=== PATIENT | female | born 1970 | race Caucasian/White ===

== ENCOUNTER 2017-07-02 07:20 | Emergency (ER) | payer MEDICAID, OTHER ==
[2017-07-02 07:48] VITALS: BP 128/71
--- NOTE | 2017-07-02 08:00 | UC ---
Respiratory Complaint HPI - HPI Summary HPI Summary: 1 WEEK OF COUGH, CONGESTION AND SINUS PRESSURE. CHEST FEELS TIGHT. SMOKER. MILD ST AND EAR PAIN. NO N/V/D. - History of Current Complaint Chief Complaint: UCRespiratory Stated Complaint: RESP ISSUE Time Seen by Provider: 07/02/17 07:49 Hx Obtained From: Patient Hx Last Menstrual Period: 06/08/17 Onset/Duration: Gradual Onset, Lasting Days, Still Present Timing: Constant Severity Initially: Moderate Severity Currently: Moderate Pain Intensity: 6 Pain Scale Used: 0-10 Numeric Character: Cough: Nonproductive Aggravating Factors: Nothing Alleviating Factors: Nothing Associated Signs And Symptoms: Positive: URI, Nasal Congestion, Sinus Discomfort. Negative: Dyspnea, Fever, Chills, Pleuritic Chest Pain, Wheezing, Hemoptysis, Dizziness, Calf Pain, Calf Swelling, Hoarseness - Allergies/Home Medications Allergies/Adverse Reactions: Allergies Allergy/AdvReac Type Severity Reaction Status Date / Time Codeine Allergy Nausea Verified 07/02/17 07:48 Morphine Allergy skin peels Verified 07/02/17 07:48 Penicillins Allergy Swelling Verified 07/02/17 07:48 Home Medications: Home Medications Magnesium 07/02/17 [History] Mometasone/Formoter 100/5 MDI* [Dulera 100/5 MDI*] 2 puff INH BID 07/02/17 [ History Confirmed 07/02/17] Norethindrone (Contraceptive) [Deblitane] 1 tab PO DAILY 07/02/17 [History Confirmed 07/02/17] Total B With Vitamin C 07/02/17 [History] Vitamin D 3 07/02/17 [History] PMH/Surg Hx/FS Hx/Imm Hx Respiratory History: COPD, Asthma GI/ History: Gastroesophageal Reflux Psychological History: Anxiety, Depression Other History Of: Negative For: HIV, Hepatitis B, Hepatitis C, Anticoagulant Therapy - Surgical History Surgical History: Yes Surgery Procedure, Year, and Place: x 2. biopsy x 3: left breast, left shoulder, throat - Family History Known Family History: Positive: Diabetes - Social History Alcohol Use: Occasionally Substance Use Type: None Smoking Status (MU): Heavy Every Day Tobacco Smoker Type: Cigarettes Amount Used/How Often: 1/2 PPD Length of Time of Smoking/Using Tobacco: 30+ YEARS Have You Smoked in the Last Year: Yes Household Exposure Type: Cigarettes - Immunization History Most Recent Influenza Vaccination: season Review of Systems Constitutional: Negative ENT: Sore Throat, Ear Ache, Nasal Discharge Respiratory: Cough Cardiovascular: Negative Gastrointestinal: Negative All Other Systems Reviewed And Are Negative: Yes Physical Exam Triage Information Reviewed: Yes Appearance: Well-Appearing, No Pain Distress, Well-Nourished Vital Signs: Initial Vital Signs Temp 99 F 07/02/17 07:44 Pulse 67 07/02/17 07:44 Resp 18 07/02/17 07:44 BP 128/71 07/02/17 07:44 Pulse Ox 97 07/02/17 07:44 Vital Signs Reviewed: Yes Eyes: Positive: Conjunctiva Clear ENT: Positive: Hearing grossly normal, Pharynx normal, TMs normal Neck: Positive: Supple, Nontender, Enlarged Nodes @ - MILD SPFL CERVICAL NONTENDER LAD Respiratory Exam: Normal Cardiovascular Exam: Normal Abdomen Description: Positive: Soft Musculoskeletal: Positive: No Edema Neurological: Positive: Alert Psychological: Positive: Age Appropriate Behavior Skin: Negative: rashes UC Diagnostic Evaluation - Laboratory O2 Sat by Pulse Oximetry: 97 Respiratory Course/Dx - Differential Dx/Diagnosis Provider Diagnoses: ACUTE URI Discharge - Discharge Plan Condition: Stable Disposition: HOME Prescriptions: predniSONE TAB* [Deltasone TAB*] 50 mg PO DAILY #5 tab Patient Education Materials: Upper Respiratory Infection (ED) Additional Instructions: NORMAL EXAM TODAY. USE YOUR INHALERS NEEDED. PREDNISONE TO HELP WITH AIRWAY INFLAMMATION. FOLLOW-UP IF YOU ARE NOT IMPROVING OVER THE NEXT 1-2 WEEKS. ACUTE UPPER RESPIRATORY INFECTION The common cold is a benign self-limited syndrome representing a group of diseases caused by members of several families of viruses. It is the most frequent acute illness in the [place] and throughout the industrialized world. The term "common cold" refers to a mild upper respiratory viral infection involving, to variable degrees, nasal congestion and discharge ( rhinorrhea), sneezing, sore throat, cough, low-grade fever, headache, and malaise. Symptomatic therapy remains the mainstay of common cold treatment. In the absence of convincing evidence of a secondary bacterial infection, antibiotics are not effective in the treatment of the common cold and should not be prescribed. Be advised that the usual course and duration of illness is up to one and a half weeks for patients with a cold, but can last slightly longer; symptoms usually persist longer in smokers. CALL THE NUMBER BELOW FOR ASSISTANCE IN ESTABLISHING WITH A PCP An additional resource available to assist in finding the appropriate physician for your health care needs is the [facility] ([facility]). You may contact them by calling [phone].
== END 2017-07-02 08:33 | disposition home or self-care (01) ==
LOC: UCEAST 07:20
DX: J06.9 Acute upper respiratory infection, unspecified (principal); J44.9 Chronic obstructive pulmonary disease, unspecified; K21.9 Gastro-esophageal reflux disease without esophagitis; F41.9 Anxiety disorder, unspecified; F32.9 Major depressive disorder, single episode, unspecified; Z88.5 Allergy status to narcotic agent; Z88.0 Allergy status to penicillin; F17.210 Nicotine dependence, cigarettes, uncomplicated
CPT/HCPCS: 99211; G0463

== ENCOUNTER 2018-05-11 09:57 | Day surgery (SDC) | payer OTHER ==
[~2018-05-11 09:57] MED LIST: Acetaminophen TAB* 325 MG PO PRN; Buffered Lidocaine 0.9% SYRIN* 5 ML/SYR SYRINGE INTRADERM ONE
[2018-05-11] MEDS ORDERED: Midazolam* 1 MG/ML 5 ML VIAL (5 MG) ONE (11:39)
[2018-05-11] MEDS ORDERED: fentaNYL* 50 MCG/ML 2 ML VIAL (100 MCG VIAL) ONE (12:34)
[2018-05-11] MEDS ORDERED: Lidocaine 1%* 5 ML VIAL ONE (12:48)
[2018-05-11] MEDS ORDERED: Povidone Iodine 5% OPTH* 30 ML BTL ONE (12:48)
[2018-05-11] MEDS ORDERED: Ketorolac 0.5% OPHTH (NF) 0.5 % 5 ML BTL ONE (12:48)
[2018-05-11] MEDS ORDERED: Tetracaine 0.5% OPTH.SOL 4 ML* 1 DROP BTL ONE (12:48)
[2018-05-11] MEDS ORDERED: acetaZOLAMIDE TAB* 250 MG ONE (12:48)
[2018-05-11] MEDS ORDERED: Phenylephrine 2.5% OPTH.SOL* 2 ML BTL ONE (12:48)
[2018-05-11] MEDS ORDERED: Neomycin/Polymy/Dex OPHTH.OIN* 3.5 GM ONE (12:48)
[2018-05-11] MEDS ORDERED: Tropicamide 1% OPTH.SOL* BTL ONE (12:48)
[2018-05-11] MEDS ORDERED: Cyclopentolate 1% OPTH.SOL* 2 ML BTL ONE (12:48)
[2018-05-11 13:47] VITALS: BP 117/61
--- NOTE | 2018-05-12 00:41 | OP ---
DATE OF OPERATION: 05/11/18 - [facility] DATE OF : 66 SURGEON: Jose D Corcoran MD. ANESTHESIA: Monitored anesthesia care. PRE-OP DIAGNOSIS: Cataract, left eye. POST-OP DIAGNOSIS: Cataract, left eye. OPERATIVE PROCEDURE: Extracapsular cataract extraction of the left eye with intraocular lens implant. IMPLANTS: SN60WF 22.5 diopter lens to the left eye. COMPLICATIONS: None. DESCRIPTION OF PROCEDURE: The patient was given phenylephrine 2.5% and cyclopentolate 1% eye drops to the operative eye in the preoperative area. The patient was taken to the operating room where a time-out was taken to identify the correct patient, side, and site of surgery. The patient's left eye was prepped and draped in the usual sterile fashion with 5% Betadine. A second time -out was taken to verify the correct patient, side, and site of surgery, and correct lens implant. A lid speculum was placed to the left eye. A 1 mm paracentesis blade was used to make a clear corneal incision in the inferotemporal position. Preservative-free 1% lidocaine was injected into the anterior chamber. DisCoVisc was then injected into the anterior chamber. A 2.75 mm keratome blade was used to make a triplanar incision at the superotemporal position. A cystotome initiated a capsulorrhexis, which was completed with Utrata forceps in a continuous and curvilinear manner. Hydrodissection of the lens was performed with BSS on a cannula. The lens could be spun in a capsular bag. The phacoemulsification handpiece was used with a [id number] technique to remove the nucleus with 14.3 CDE. The I/ A handpiece then removed the residual cortical lens material. DisCoVisc was injected to inflate the capsular bag. The planned SN60WF 22.5 diopter lens was injected into the capsular bag. The residual DisCoVisc was removed from the eye with the I/A handpiece. The corneal incisions were hydrated and no leaks occurred at physiologic pressure around 20 mmHg per palpation. The lid speculum was removed and drapes removed. Maxitrol ointment was placed to the surface of the operative eye. An adhesive patch and shield was then placed on the operative eye. The patient was taken to the postoperative area in stable condition. [id number]/[facility] #: [id number] MTDD
== END 2018-05-11 13:20 | disposition home or self-care (01) ==
LOC: OREAST 09:57
PROVIDERS: ATTEND Student in an Organized Health Care Education/Training Program
DX: H25.12 Age-related nuclear cataract, left eye (principal); H52.202 Unspecified astigmatism, left eye; F17.210 Nicotine dependence, cigarettes, uncomplicated; K21.9 Gastro-esophageal reflux disease without esophagitis; J44.9 Chronic obstructive pulmonary disease, unspecified; F43.23 Adjustment disorder with mixed anxiety and depressed mood; E66.9 Obesity, unspecified
CPT/HCPCS: 81025; A9270-GY; J2250; J3010; V2632

== ENCOUNTER 2018-05-18 07:58 | Day surgery (SDC) | payer OTHER ==
[2018-05-18] MEDS ORDERED: Midazolam* 1 MG/ML 2 ML VIAL (2 MG) ONE (08:52)
[2018-05-18] MEDS ORDERED: fentaNYL* 50 MCG/ML 2 ML VIAL (100 MCG VIAL) ONE (08:52)
[2018-05-18] MEDS ORDERED: Propofol* 10 MG/ML 20 ML BTL IV PUSH ONE (09:36)
[2018-05-18 10:04] VITALS: BP 135/78
[2018-05-18] MEDS ORDERED: Tropicamide 1% OPTH.SOL* BTL ONE (14:15)
[2018-05-18] MEDS ORDERED: Neomycin/Polymy/Dex OPHTH.OIN* 3.5 GM ONE (14:15)
[2018-05-18] MEDS ORDERED: Tetracaine 0.5% OPTH.SOL 4 ML* 1 DROP BTL ONE (14:15)
[2018-05-18] MEDS ORDERED: Povidone Iodine 5% OPTH* 30 ML BTL ONE (14:15)
[2018-05-18] MEDS ORDERED: Phenylephrine 2.5% OPTH.SOL* 2 ML BTL ONE (14:15)
[2018-05-18] MEDS ORDERED: Ketorolac 0.5% OPHTH (NF) 0.5 % 5 ML BTL ONE (14:15)
[2018-05-18] MEDS ORDERED: Lidocaine 1%* 5 ML VIAL ONE (14:15)
[2018-05-18] MEDS ORDERED: Cyclopentolate 1% OPTH.SOL* 2 ML BTL ONE (14:15)
[2018-05-18] MEDS ORDERED: acetaZOLAMIDE TAB* 250 MG ONE (14:15)
--- NOTE | 2018-05-19 02:31 | OP ---
DATE OF OPERATION: 05/18/18 - [facility] DATE OF : 66 SURGEON: Jose D Corcoran MD ANESTHESIA: Monitored anesthesia care. PRE-OP DIAGNOSIS: Cataract, right eye. POST-OP DIAGNOSIS: Cataract, right eye. OPERATIVE PROCEDURE: Extracapsular cataract extraction of the right eye with intraocular lens implant. IMPLANTS: SN60WF 23.0 diopter lens to the right eye. COMPLICATIONS: None. DESCRIPTION OF PROCEDURE: The patient was given phenylephrine 2.5% and cyclopentolate 1% eye drops to the operative eye in the preoperative area. The patient was taken to the operating room where a time-out was taken to identify the correct patient, site, and side of surgery. The patient's right eye was prepped and draped in the usual sterile fashion with 5% Betadine. A second time -out was taken to verify the correct patient, site, and side of surgery and correct lens implant. A lid speculum was placed to the right eye. A 1 mm paracentesis blade was used to make a clear corneal incision in the superotemporal position. Preservative free 1% lidocaine was injected into the anterior chamber. DisCoVisc was then injected into the anterior chamber. A 2.75 mm keratome blade was used to make a triplanar incision at the inferotemporal position. A cystotome initiated a capsulorrhexis, which was completed with Utrata forceps in a continuous and curvilinear manner. Hydrodissection of the lens was performed with BSS on a cannula. The lens could be spun in a capsular bag. The phacoemulsification handpiece was used with a divide and conquer technique to remove the nucleus with 10.29 CE. The I/ A handpiece then removed the residual cortical lens material. DisCoVisc was injected to inflate the capsular bag. The planned SN60WF 23.0 diopter lens was injected into the capsular bag. The residual DisCoVisc was removed from the eye with the I/A handpiece. The corneal incisions were hydrated and no leaks occurred at physiologic pressure around 20 mmHg per palpation. The lid speculum was removed and drapes removed. Maxitrol ointment was placed to the surface of the operative eye. An adhesive patch and shield was then placed on the operative eye. The patient was taken to the postoperative area in stable condition. The patient would squeeze her eyes strongly during the surgery despite anesthesia and topical anesthetic, but no complication has occurred. [id number]/[facility] #: [id number] MTDD
== END 2018-05-18 10:06 | disposition home or self-care (01) ==
LOC: OREAST 07:58
PROVIDERS: ATTEND Student in an Organized Health Care Education/Training Program
DX: H25.11 Age-related nuclear cataract, right eye (principal); Z72.0 Tobacco use; J44.9 Chronic obstructive pulmonary disease, unspecified; K21.9 Gastro-esophageal reflux disease without esophagitis; M19.90 Unspecified osteoarthritis, unspecified site; F41.8 Other specified anxiety disorders; D64.9 Anemia, unspecified
CPT/HCPCS: 81025; A9270-GY; J2250; J2704; J3010; V2632

== ENCOUNTER 2018-06-25 07:27 | Emergency (ER) | payer OTHER ==
--- OUTSIDE RECORDS SUMMARY | 2018-06-25 07:34 | XMS REPORT ---
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 5'4" Weight 288.00 lb BMI (Body Mass Index) 49.4 kg/m2 11/18/2005 Height 64 inches 5'4" Weight 288.00 lb BMI (Body Mass Index) 49.4 kg/m2 11/02/2005 BP Systolic 112 mmHg BP Diastolic 70 mmHg Heart Rate 76 /min reg Respiratory Rate 12 /min not laboured Body Temperature 98.3 F Height 64 inches 5'4" Weight 279.00 lb BMI (Body Mass Index) 47.9 kg/m2 08/30/2005 BP Systolic 120 mmHg BP Diastolic 80 mmHg Heart Rate 80 /min Respiratory Rate 16 /min Body Temperature 98.5 F Height 64 inches 5'4" Weight 267.00 lb BMI (Body Mass Index) 45.8 kg/m2 03/05/2005 BP Systolic 124 mmHg BP Diastolic 80 mmHg Respiratory Rate 16 /min Easy Height 60.25 inches 5'0.25" Weight 259.00 lb BMI (Body Mass Index) 50.2 kg/m2 02/26/2005 BP Systolic 110 mmHg BP Diastolic 68 mmHg Height 60.25 inches 5'0.25" Weight 261.00 lb BMI (Body Mass Index) 50.5 kg/m2 01/24/2005 BP Systolic 120 mmHg BP Diastolic 82 mmHg Height 60.25 inches 5'0.25" Weight 250.00 lb BMI (Body Mass Index) 48.4 kg/m2 08/30/2004 BP Systolic 110 mmHg BP Diastolic 78 mmHg Height 60.25 inches 5'0.25" Weight 250.00 lb BMI (Body Mass Index) 48.4 kg/m2 05/24/2004 BP Systolic 102 mmHg BP Diastolic 60 mmHg Weight 245.00 lb 04/19/2004 BP Systolic 122 mmHg BP Diastolic 78 mmHg Body Temperature 97.9 F Weight 245.00 lb 03/27/2004 BP Systolic 122 mmHg BP Diastolic 84 mmHg Weight 246.00 lb 03/22/2004 BP Systolic 110 mmHg BP Diastolic 70 mmHg Weight 248.00 lb Last Menstrual Period [id number] 12/27/2003 BP Systolic 122 mmHg BP Diastolic 70 mmHg Weight 257.00 lb Results Test Date Test Result H/L Range Note Lipid Profile (Trig/Chol/HDL) 05/02/2018 Triglycerides 183 mg/dL 1 Cholesterol 207 mg/dL 2 HDL Cholesterol 36.7 mg/dL 3 LDL Cholesterol 134 mg/dL 4 CBC Auto Diff 05/02/2018 White Blood Count 10.0 10^3/uL 3.5-10.8 Red Blood Count 4.95 10^6/uL 4.00-5.40 Hemoglobin 13.5 g/dL 12.0-16.0 Hematocrit 40 % 35-47 Mean Corpuscular Volume 81 fL 80-97 Mean Corpuscular Hemoglobin 27 pg 27-31 Mean Corpuscular HGB Conc 34 g/dL 31-36 Red Cell Distribution Width 15 % 10.5-15 Platelet Count 238 10^3/uL 150-450 Mean Platelet Volume 9.5 um3 7.4-10.4 Abs Neutrophils 6.4 10^3/uL 1.5-7.7 Abs Lymphocytes 2.4 10^3/uL 1.0-4.8 Abs Monocytes 0.5 10^3/uL 0-0.8 Abs Eosinophils 0.5 10^3/uL 0-0.6 Abs Basophils 0.1 10^3/uL 0-0.2 Abs Nucleated RBC 0 10^3/uL Granulocyte % 64.0 % 38-83 Lymphocyte % 24.5 % Low 25-47 Monocyte % 5.3 % 0-7 Eosinophil % 5.2 % 0-6 Basophil % 1.0 % 0-2 Nucleated Red Blood Cells % 0 Laboratory test finding 05/02/2018 TSH (Thyroid Stim Horm) 1.61 mcIU/mL 0.34-5.60 Comp Metabolic Panel 05/02/2018 Sodium 138 mmol/L 135-145 Potassium 4.2 mmol/L 3.5-5.0 Chloride 106 mmol/L 101-111 Co2 Carbon Dioxide 24 mmol/L 22-32 Anion Gap 8 mmol/L 2-11 Glucose 90 mg/dL 70-100 Blood Urea Nitrogen 7 mg/dL 6-24 Creatinine 0.78 mg/dL 0.51-0.95 BUN/Creatinine Ratio 9.0 8-20 Calcium 8.9 mg/dL 8.6-10.3 Total Protein 6.4 g/dL 6.4-8.9 Albumin 3.6 g/dL 3.2-5.2 Globulin 2.8 g/dL 2-4 Albumin/Globulin Ratio 1.3 1-3 Total Bilirubin 0.30 mg/dL 0.2-1.0 Alkaline Phosphatase 98 U/L 34-104 Alt 8 U/L 7-52 Ast 11 U/L Low 13-39 Egfr Non- 78.2 >60 Egfr 94.6 >60 5 Laboratory test 04/07/2018 Cytology SEE RESULT BELOW 6 finding Xray 07/28/2017 X-Ray, Knee, Right, Lat patella on sun 7 4 Or More Views Xray 07/07/2017 X-Ray, Chest, 2 +pneumonia 8 Views Xray 09/10/2016 X-Ray, Shoulder, normal shoulder Left, Min. Of 2 Views CBC Auto Diff 08/15/2016 White Blood Count 8.3 10^3/uL 3.5-10.8 Red Blood Count 5.10 10^6/uL 4.0-5.4 Hemoglobin 12.8 g/dL 12.0-16.0 Hematocrit 39 % 35-47 Mean Corpuscular Volume 77 fL Low 80-97 Mean Corpuscular Hemoglobin 25 pg Low 27-31 Mean Corpuscular HGB Conc 33 g/dL 31-36 Red Cell Distribution Width 16 % High 10.5-15 Platelet Count 246 10^3/uL 150-450 Mean Platelet Volume 10 um3 7.4-10.4 Abs Neutrophils 4.9 10^3/uL 1.5-7.7 Abs Lymphocytes 2.4 10^3/uL 1.0-4.8 Abs Monocytes 0.6 10^3/uL 0-0.8 Abs Eosinophils 0.3 10^3/uL 0-0.6 Abs Basophils 0.1 10^3/uL 0-0.2 Abs Nucleated RBC 0 10^3/uL Granulocyte % 59.1 % 38-83 Lymphocyte % 29.3 % 25-47 Monocyte % 6.7 % 1-9 Eosinophil % 4.1 % 0-6 Basophil % 0.8 % 0-2 Nucleated Red Blood Cells % 0 Comp Metabolic Panel 08/15/2016 Sodium 135 mmol/L 133-145 Potassium 4.1 mmol/L 3.5-5.0 Chloride 104 mmol/L 101-111 Co2 Carbon Dioxide 25 mmol/L 22-32 Anion Gap 6 mmol/L 2-11 Glucose 83 mg/dL 70-100 Blood Urea Nitrogen 7 mg/dL 6-24 Creatinine 0.72 mg/dL 0.51-0.95 BUN/Creatinine Ratio 9.7 8-20 Calcium 9.2 mg/dL 8.6-10.3 Total Protein 7.1 g/dL 6.4-8.9 Albumin 3.9 g/dL 3.2-5.2 Globulin 3.2 g/dL 2-4 Albumin/Globulin Ratio 1.2 1-3 Total Bilirubin 0.20 mg/dL 0.2-1.0 Alkaline Phosphatase 82 U/L 34-104 Alt 11 U/L 7-52 Ast 15 U/L 13-39 Egfr Non- 86.5 >60 Egfr 111.2 >60 9 Laboratory test finding 08/15/2016 Erythrocyte Sed Rate 28 mm/Hr High 0- 14 Magnesium 2.0 mg/dL 1.9-2.7 Vitamin B12 262 pg/mL 180-914 10 Vitamin D Total 25(Oh) 15.4 ng/mL Low 30-50 C Reactive Protein 14.32 mg/L High < 5.00 11 CBC Auto Diff 05/03/2016 White Blood Count 12.4 10^3/uL High 3.5-10.8 Red Blood Count 4.86 10^6/uL 4.0-5.4 Hemoglobin 11.7 g/dL Low 12.0-16.0 Hematocrit 37 % 35-47 Mean Corpuscular Volume 76 fL Low 80-97 Mean Corpuscular Hemoglobin 24 pg Low 27-31 Mean Corpuscular HGB Conc 32 g/dL 31-36 Red Cell Distribution Width 17 % High 10.5-15 Platelet Count 260 10^3/uL 150-450 Mean Platelet Volume 10 um3 7.4-10.4 Abs Neutrophils 8.2 10^3/uL High 1.5-7.7 Abs Lymphocytes 3.0 10^3/uL 1.0-4.8 Abs Monocytes 0.8 10^3/uL 0-0.8 Abs Eosinophils 0.3 10^3/uL 0-0.6 Abs Basophils 0.1 10^3/uL 0-0.2 Abs Nucleated RBC 0.01 10^3/uL Granulocyte % 66.2 % 38-83 Lymphocyte % 23.9 % Low 25-47 Monocyte % 6.7 % 1-9 Eosinophil % 2.4 % 0-6 Basophil % 0.8 % 0-2 Nucleated Red Blood Cells % 0.1 Comp Metabolic Panel 05/03/2016 Sodium 136 mmol/L 133-145 Potassium 4.1 mmol/L 3.5-5.0 Chloride 105 mmol/L 101-111 Co2 Carbon Dioxide 25 mmol/L 22-32 Anion Gap 6 mmol/L 2-11 Glucose 105 mg/dL High 70-100 Blood Urea Nitrogen 8 mg/dL 6-24 Creatinine 0.73 mg/dL 0.51-0.95 BUN/Creatinine Ratio 11.0 8-20 Calcium 9.2 mg/dL 8.6-10.3 Total Protein 6.4 g/dL 6.4-8.9 Albumin 3.7 g/dL 3.2-5.2 Globulin 2.7 g/dL 2-4 Albumin/Globulin Ratio 1.4 1-3 Total Bilirubin 0.20 mg/dL 0.2-1.0 Alkaline Phosphatase 67 U/L 34-104 Alt 9 U/L 7-52 Ast 12 U/L Low 13-39 Egfr Non- 85.1 >60 Egfr 109.4 >60 12 Laboratory test finding 05/03/2016 C Reactive Protein 5.52 mg/L High < 5.00 13 Erythrocyte Sed Rate 21 mm/Hr High 0-14 TSH (Thyroid Stim Horm) 1.43 mcIU/mL 0.34-5.60 Magnesium 1.9 mg/dL 1.9-2.7 CBC Auto Diff 10/27/2015 White Blood Count 9.0 10^3/uL 3.5-10.8 Red Blood Count 5.47 10^6/uL High 4.0-5.4 Hemoglobin 13.1 g/dL 12.0-16.0 Hematocrit 42 % 35-47 Mean Corpuscular Volume 77 fL Low 80-97 Mean Corpuscular Hemoglobin 24 pg Low 27-31 Mean Corpuscular HGB Conc 31 g/dL 31-36 Red Cell Distribution Width 16 % High 10.5-15 Platelet Count 279 10^3/uL 150-450 Mean Platelet Volume 9 um3 7.4-10.4 Abs Neutrophils 5.9 10^3/uL 1.5-7.7 Abs Lymphocytes 1.9 10^3/uL 1.0-4.8 Abs Monocytes 0.7 10^3/uL 0-0.8 Abs Eosinophils 0.3 10^3/uL 0-0.6 Abs Basophils 0.1 10^3/uL 0-0.2 Abs Nucleated RBC 0.01 10^3/uL Granulocyte % 65.8 % 38-83 Lymphocyte % 21.6 % Low 25-47 Monocyte % 7.3 % 1-9 Eosinophil % 3.9 % 0-6 Basophil % 1.4 % 0-2 Nucleated Red Blood Cells % 0.1 Urinalysis Profile 10/27/2015 Urine Color Yellow Urine Appearance Clear Urine Specific [place] 1.019 1.010-1.030 Urine pH 6.0 5-9 Urine Urobilinogen Negative Negative Urine Ketones Negative Negative Urine Protein Negative Negative Urine Leukocytes Negative Negative Urine Blood Negative Negative Urine Nitrite Negative Negative Urine Bilirubin Negative Negative Urine Glucose Negative Negative Comp Metabolic Panel 10/27/2015 Sodium 135 mmol/L 133-145 Chloride 104 mmol/L 101-111 Co2 Carbon Dioxide 26 mmol/L 22-32 Glucose 87 mg/dL 70-100 Blood Urea Nitrogen 12 mg/dL 6-24 Creatinine 0.76 mg/dL 0.51-0.95 BUN/Creatinine Ratio 15.8 8-20 Calcium 9.3 mg/dL 8.6-10.3 Total Protein 7.9 g/dL 6.4-8.9 Albumin 4.1 g/dL 3.2-5.2 Globulin 3.8 g/dL 2-4 Albumin/Globulin Ratio 1.1 1-3 Total Bilirubin 0.30 mg/dL 0.2-1.0 Alkaline Phosphatase 80 U/L 34-104 Alt 12 U/L 7-52 Egfr Non- 81.6 >60 Egfr 104.9 >60 14 Potassium 4.3 mmol/L 3.5-5.0 Anion Gap 5 mmol/L 2-11 Ast 19 U/L 13-39 Laboratory test finding 10/27/2015 Lipase 23 U/L 11.0-82.0 15 C Reactive Protein 7.05 mg/L High < 5.00 16 HCG Qualitative Negative Negative Xray 10/25/2015 Pelvic Sonogram ovarian cysts CBC Auto Diff 10/25/2015 White Blood Count 8.1 10^3/uL 3.5-10.8 Red Blood Count 5.30 10^6/uL 4.0-5.4 Hemoglobin 13.0 g/dL 12.0-16.0 Hematocrit 40 % 35-47 Mean Corpuscular Volume 76 fL Low 80-97 Mean Corpuscular Hemoglobin 25 pg Low 27-31 Mean Corpuscular HGB Conc 33 g/dL 31-36 Red Cell Distribution Width 17 % High 10.5-15 Platelet Count 237 10^3/uL 150-450 Mean Platelet Volume 9 um3 7.4-10.4 Abs Neutrophils 5.3 10^3/uL 1.5-7.7 Abs Lymphocytes 1.8 10^3/uL 1.0-4.8 Abs Monocytes 0.5 10^3/uL 0-0.8 Abs Eosinophils 0.3 10^3/uL 0-0.6 Abs Basophils 0.1 10^3/uL 0-0.2 Abs Nucleated RBC 0 10^3/uL Granulocyte % 66.1 % 38-83 Lymphocyte % 22.2 % Low 25-47 Monocyte % 6.6 % 1-9 Eosinophil % 3.7 % 0-6 Basophil % 1.4 % 0-2 Nucleated Red Blood Cells % 0.1 Laboratory test finding 10/25/2015 Erythrocyte Sed Rate 26 mm/Hr High 0- 14 Comp Metabolic Panel 10/25/2015 Sodium 137 mmol/L 133-145 Potassium 4.1 mmol/L 3.5-5.0 Chloride 102 mmol/L 101-111 Co2 Carbon Dioxide 29 mmol/L 22-32 Anion Gap 6 mmol/L 2-11 Glucose 84 mg/dL 70-100 Blood Urea Nitrogen 13 mg/dL 6-24 Creatinine 0.72 mg/dL 0.51-0.95 BUN/Creatinine Ratio 18.1 8-20 Calcium 9.7 mg/dL 8.6-10.3 Total Protein 7.4 g/dL 6.4-8.9 Albumin 4.0 g/dL 3.2-5.2 Globulin 3.4 g/dL 2-4 Albumin/Globulin Ratio 1.2 1-3 Total Bilirubin 0.20 mg/dL 0.2-1.0 Alkaline Phosphatase 83 U/L 34-104 Alt 11 U/L 7-52 Ast 13 U/L 13-39 Egfr Non- 86.8 >60 Egfr 111.7 >60 17 Laboratory test finding 10/25/2015 HCG Qualitative Negative Negative Urine Micro Inhouse 10/24/2015 Ua WBC - 18 Ua RBC - 18 Ua Casts - 18 Ua Epi - 18 Ua Other - 18 Ua Glucose - 18 Ua Bilirubin - 18 Ua Ketones - 18 Ua Specific [place] 1.005 18 Ua Blood - 18 Ua PH 6.0 18 Ua Protein - 18 Ua Urobilinogen - 18 Ua Nitrite - 18 Ua Leukocytes - 18 Laboratory test finding 10/24/2015 Test Urine negative GC/Chlamydia Amplified 10/24/2015 Chlamydia trachomatis Rna Negative Negative Rna Neisseria gonorrhoeae (GC) Rna Negative Negative Laboratory test finding 10/24/2015 Culture Genital & SEE RESULT BELOW 19 Sensitivity Xray 11/14/2014 X-Ray, Pelvis, 1 Or 2 wnl Views X-Ray, Hip, Left, 1 View wnl X-Ray, Hip, RT, 1 View wnl X-Ray, Knee, Left, 4 Or More Views wnl Culture Urine Inhouse 11/14/2014 Colonies no growth Urine Micro Inhouse 11/14/2014 Ua WBC - Ua RBC 0-1 Ua Casts - Ua Epi 0-1 Ua Other - Ua Glucose - Ua Bilirubin - Ua Ketones - Ua Specific [place] 1.030 Ua Blood - Ua PH 5.0 Ua Protein - Ua Urobilinogen - Ua Nitrite - Ua Leukocytes - Urine Culture And 11/05/2014 Urine Culture (SEE NOTE) 20 Sensitivities Laboratory test finding 10/24/2014 Cytology RUN DATE: <SEE NOTE> Laboratory test finding 10/24/2014 Human Papilloma Negative Negative 22 Virus Rna GC/Chlamydia Amplified 10/24/2014 Chlamydia Negative Negative Rna trachomatis Rna Neisseria gonorrhoeae (GC) Rna Negative Negative 23 Urine Micro Inhouse 05/12/2014 Ua WBC - Ua RBC 10-12 Ua Casts - Ua Epi 0-2 Ua Other - Ua Glucose - Ua Bilirubin - Ua Ketones - Ua Specific [place] 1.010 Ua Blood Large Ua PH 5.0 Ua Protein - Ua Urobilinogen - Ua Nitrite - Ua Leukocytes - Laboratory test finding 05/12/2014 Test Urine negative Culture Urine Inhouse 05/12/2014 Colonies no growth CBC Auto Diff 05/12/2014 White Blood Count 9.5 10^3/uL 4.8-10.8 Red Blood Count 5.04 10^6/uL 4.0-5.4 Hemoglobin 11.9 g/dL Low 12.0-16.0 Hematocrit 37 % 35-47 Mean Corpuscular Volume 73 fL Low 80-97 24 Mean Corpuscular Hemoglobin 24 pg Low 27-31 Mean Corpuscular HGB Conc 32 g/dL 31-36 Red Cell Distribution Width 17 % High 10.5-15 Platelet Count 247 10^3/uL 150-450 Mean Platelet Volume 9 um3 7.4-10.4 Abs Neutrophils 6.0 10^3/uL 1.5-7.7 Abs Lymphocytes 2.5 10^3/uL 1.0-4.8 Abs Monocytes 0.5 10^3/uL 0-0.8 Abs Eosinophils 0.3 10^3/uL 0-0.6 Abs Basophils 0.2 10^3/uL 0-0.2 Abs Nucleated RBC 0.02 10^3/uL Comp Metabolic Panel 05/12/2014 Sodium 138 mmol/L 133-145 Potassium 3.9 mmol/L 3.7-5.6 Chloride 106 mmol/L 101-111 Co2 Carbon Dioxide 26 mmol/L 22-32 Anion Gap 6 mmol/L 2-11 Glucose 75 mg/dL 70-100 Blood Urea Nitrogen 7 mg/dL 6-24 Creatinine 0.73 mg/dL 0.51-0.95 BUN/Creatinine Ratio 9.6 8-20 Calcium 9.1 mg/dL 8.6-10.3 Total Protein 7.5 g/dL 6.4-8.9 Albumin 3.9 g/dL 3.2-5.2 Globulin 3.6 g/dL 2-4 Albumin/Globulin Ratio 1.1 1-3 Total Bilirubin 0.20 mg/dL 0.2-1.0 Alkaline Phosphatase 84 U/L 34-104 Alt 10 U/L 7-52 Ast 13 U/L 13-39 Egfr Non- 85.8 >60 Egfr 110.4 >60 25 Laboratory test finding 05/12/2014 Amylase 27 U/L Low 29-103 Lipase 24 U/L 11.0-82.0 TSH (Thyroid Stimulating Horm) 1.05 IU/mL 0.34-5.60 Beta HCG Quantitative < 0.60 IU/mL 0.0-5.0 26 Manual Differential 05/12/2014 Neutrophil % 60 % 38-83 Lymphocytes % 28 % 25-47 Monocytes % 8 % 0-13 Eosinophils % 4 % 0-6 Microcytosis 1+ Hypochromasia 1+ Xray 12/03/2013 X-Ray, Chest, 2 Views wnl Urine Drug Screen Inhouse 09/27/2013 Urine THC Screen - Ua Cocaine - Ua Opiates - Ua Amphetamines - Urine Methanephrine Random - Urine Phenyclidine GC/MS - Urine Mdma QN Random - Ua Barbiturates - Urine Benzodiazepines QN [place] - Ua Methadone - Urine Tricyclc Antidepress RND - Urine Oxycodone QL - Laboratory test finding 09/27/2013 TSH (Thyroid Stimulating 1.79 miu/mL 0.34-5.60 Horm) Urine Micro Inhouse 09/27/2013 Ua WBC 0-1 Ua RBC 0-2 Ua Casts - Ua Epi 0-1 Ua Other fiber 0-2 crystals Ua Glucose - Ua Bilirubin - Ua Ketones - Ua Specific [place] 1.015 Ua Blood - Ua PH 6.0 Ua Protein - Ua Urobilinogen - Ua Nitrite - Ua Leukocytes - Human Papilloma Virus 04/20/2013 Human Papillomavirus Source See Comment 27 Human Papillomavirus High Risk Negative Negative 28 Laboratory test finding 04/19/2013 Erythrocyte Sed Rate 43 mm/Hr High 0- 14 Hepatitis C Antibody Low Reactive Nonreactive 29 Comp Metabolic Panel 04/19/2013 Sodium 138 mmol/L 133-145 Potassium 4.1 mmol/L 3.5-5.0 Chloride 106 mmol/L 101-111 Co2 Carbon Dioxide 24.0 mmol/L 22-32 Anion Gap 8.0 mmol/L 2-11 Glucose 72 mg/dL 70-100 Blood Urea Nitrogen 10 mg/dL 6-24 Creatinine 1.00 mg/dL 0.50-1.40 BUN/Creatinine Ratio 10.0 8-20 Calcium 9.6 mg/dL 8.1-9.9 Total Protein 8.1 g/dL 6.2-8.1 Albumin 3.5 g/dL Low 3.6-5.4 Globulin 4.6 g/dL High 2-4 Albumin/Globulin Ratio 0.8 Low 1-3 Total Bilirubin 0.4 mg/dL 0.4-1.5 Alkaline Phosphatase 85 U/L 30-110 Alt 15 U/L 14-54 Ast 20 U/L 12-42 Egfr Non- 60.0 >60 Egfr 77.1 >60 30 CBC Auto Diff 04/19/2013 White Blood Count 9.6 10^3/uL 4.8-10.8 Red Blood Count 4.86 10^6/uL 4.0-5.4 Hemoglobin 10.7 g/dL Low 12.0-16.0 Hematocrit 35 % 35-47 Mean Corpuscular Volume 72 fL Low 80-97 Mean Corpuscular Hemoglobin 22 pg Low 27-31 Mean Corpuscular HGB Conc 31 g/dL 31-36 Red Cell Distribution Width 17 % High 10.5-15 Platelet Count 281 10^3/uL 150-450 Mean Platelet Volume 9 um3 7.4-10.4 Abs Neutrophils 6.3 10^3/uL 1.5-7.7 Abs Lymphocytes 2.2 10^3/uL 1.0-4.8 Abs Monocytes 0.7 10^3/uL 0-0.8 Abs Eosinophils 0.3 10^3/uL 0-0.6 Abs Basophils 0.1 10^3/uL 0-0.2 Abs Nucleated RBC 0.01 10^3/uL Granulocyte % 65.1 % 38-83 Lymphocyte % 23.1 % Low 25-47 Monocyte % 7.5 % 1-9 Eosinophil % 3.4 % 0-6 Basophil % 0.9 % 0-2 Nucleated Red Blood Cells % 0.1 Cell Morphology 04/19/2013 Microcytosis 1+ Laboratory test 04/19/2013 Hepatitis C Rna Undetected IU/mL Undetected 31 finding Quantitative GC/Chlamydia 04/19/2013 GC/Chlamydia Rna (SEE NOTE) 32, 33 Amplified Rna Laboratory test 04/19/2013 Cytology RUN DATE: , 34 finding <SEE NOTE> Urine Micro 04/19/2013 Ua WBC - Inhouse Ua RBC - Ua Casts - Ua Epi - Ua Other - Ua Glucose - Ua Bilirubin - Ua Ketones - Ua Specific [place] 1.005 Ua Blood - Ua PH 6.0 Ua Protein - Ua Urobilinogen - Ua Nitrite - Ua Leukocytes - Laboratory test 04/19/2013 Occult Blood - neg x3 finding Stool HIV 1/2 AB 04/19/2013 HIV 1 2 Antibody Nonreactive Nonreactive 35 Evaluation Laboratory test 04/17/2012 Genital Culture 36 finding <SEE NOTE> GC/Chlamydia 04/17/2012 M 37, 38 Aptima <SEE NOTE> Laboratory test 04/17/2012 Cytology 37, 39 finding <SEE NOTE> Laboratory test 12/15/2011 Amylase 37 U/L 20-120 40 finding Lipase 22 U/L 22-51 Comp Metabolic Panel 12/15/2011 Sodium 138 mmol/L 135-145 Potassium 3.6 mmol/L 3.5-5.0 Chloride 107 mmol/L 101-111 Co2 (Carbon Dioxide) 26.0 mmol/L 22-32 Anion Gap 5.0 mmol/L 2-11 41 Glucose 85 mg/dL 70-100 BUN 8 mg/dL 6-24 Creatinine 0.9 mg/dL 0.50-1.40 One Over Creatinine 1.11 BUN/Creatinine Ratio 8.9 8-20 Calcium 8.8 mg/dL 8.1-9.9 Total Protein 6.3 GM/DL 6.2-8.1 Albumin 3.6 GM/DL 3.6-5.4 Globulin 2.7 GM/DL 2-4 Albumin/Globulin Ratio 1.3 1-3 Bilirubin Total 0.3 mg/dL Low 0.4-1.5 42 Alkaline Phosphatase 68 U/L 30-110 Alt (SGPT) 16 U/L 14-54 Ast (Sgot) 19 U/L 12-42 eGFR Non- 68.3 > 60 eGFR 87.9 > 60 43 CBC No Diff 12/15/2011 White Blood Count 5.5 CUMM 4.8-10.8 Red Cell Count 4.54 CUMM 4.2-5.4 Hemoglobin 11.5 g/dL Low 12.0-16.0 Hematocrit 34 % Low 35-47 Mean Corpuscular Volume 76 um3 Low 79-97 Mean Corpuscular Hemoglob 25 pg Low 27-31 Mean Corpuscular HGB Cone 34 g/dL 32-36 Redcell Distribution WDTH 17 % High 10.5-15 Platelet Count 179 CUMM 150-450 Mean Platelet Volume 11.2 um3 High 7.4-10.4 Order 09/27/2011 Hemoglobin A1c 6.0 Lipid Profile (Trig/Chol/HDL) 08/09/2011 Triglyceride 90 mg/dL 40-200 Cholesterol 200 mg/dL Less Than 200 44 High Density Lipoprotein 37 mg/dL Low 40-60 45 Cholesterol/HDL Ratio 5.41 AVERAGE High 1-4.44 Low Density Lipoprotein 145 mg/dL High Less Than 100 46 Laboratory test 04/11/2011 Cytology <SEE 47 finding NOTE> Laboratory test 03/21/2011 Vad NONREACTIVE Nonreactive 48 finding Laboratory test 03/21/2011 GC (N. N 49 finding Gonorrhoeae) Rna Laboratory test 03/21/2011 Cytology <SEE 50, 51 finding NOTE> Laboratory test 03/21/2011 Syphilis IgG NON-REACTIVE Nonreactive 52 finding Hepatitis B Surface Ag Nonreactive Nonreactive Hepatitis C Antibody Nonreactive Nonreactive GC/Chlamydia Aptima 03/21/2011 Chlamydia Trachomatis Rna N 53 Urine Micro Inhouse 09/18/2010 Ua WBC - Ua RBC - Ua Casts - Ua Epi occ Ua Other - Ua Glucose - Ua Bilirubin - Ua Ketones - Ua Specific [place] 1.010 Ua Blood - Ua PH 6.0 Ua Protein - Ua Urobilinogen - Ua Nitrite - Ua Leukocytes tr Order 09/18/2010 wet prep pos clue cell 54 Precious vaginal prep pos whiff/neghyphae 54 Culture Urine Inhouse 09/18/2010 Colonies no growth Laboratory test finding 02/13/2008 Culture Throat no growth Xray 07/03/2007 X-Ray, Knee, Left, 4 Or djd w ossicle marie More Views Comp Metabolic Panel 06/05/2007 One Over Creatinine 1.11 55 Anion Gap 8.0 mmol/L 2-11 55, 56 Albumin/Globulin Ratio 1.3 1-3 55 Albumin 3.8 GM/DL 3.6-5.4 55 Alkaline Phosphatase 91 U/L 30-110 55 Alt (SGPT) 16 U/L 14-54 55 Ast (Sgot) 19 U/L 12-42 55 BUN 7 mg/dL 6-24 55 Calcium 8.8 mg/dL 8.7-10.2 55 Chloride 102 mmol/L 101-111 55 Co2 (Carbon Dioxide) 26.0 mmol/L 22-32 55 Globulin 2.9 GM/DL 2-4 55 Glucose 91 mg/dL 70-105 55 Potassium 4.0 mmol/L 3.5-5.0 55 Sodium 136 mmol/L 135-145 55 Bilirubin Total 0.4 mg/dL 0.4-1.5 55 Total Protein 6.7 GM/DL 6.2-8.1 55 BUN/Creatinine Ratio 7.8 Low 8-20 55 Creatinine 0.9 mg/dL 0.5-1.4 55 Laboratory test finding 06/05/2007 Serum Qual HCG NEGATIVE Negative 55, 57 CBC With Manual Diff 06/05/2007 White Blood Count 10.6 CUMM 4.8-10.8 55 Absolute Neutrophil Count 6.0 55 Atypical Lymph 1 % 0-6 55 Anisocytosis 1+ 55 Hematocrit 41 % 35-47 55 Hemoglobin 13.3 g/dL 12.0-16.0 55 Eosenophil 2 % 0-6 55 Lymphocyte 34 % 5-47 55 Mean Corpuscular HGB Cone 33 g/dL 32-36 55 Mean Corpuscular Hemoglob 25 pg Low 27-31 55 Mean Corpuscular Volume 77 um3 Low 79-97 55 Microcytosis SLIGHT 55 Monocyte 6 % 0-13 55 Mean Platelet Volume 10.7 um3 High 7.4-10.4 55 Platelet Count 236 CUMM 150-450 55 Polysegmented Neutrophil 57 % 38-83 55 Red Cell Count 5.32 CUMM 4.2-5.4 55 Redcell Distribution WDTH 16 % High 10.5-15 55 Laboratory test finding 06/05/2007 Urine Culture Sensitivi NG 55, 58 Xray 02/12/2007 X-ray, Chest, 2 Views nl 59 Basic Metabolic Panel 10/10/2006 One Over Creatinine 1.11 Anion Gap 13.0 mmol/L High 2-11 60 BUN 10 mg/dL 6-24 Calcium 9.0 mg/dL 8.7-10.2 Chloride 101 mmol/L 101-111 Co2 (Carbon Dioxide) 25.0 mmol/L 22-32 Glucose 89 mg/dL 70-105 Potassium 3.7 mmol/L 3.5-5.0 Sodium 139 mmol/L 135-145 BUN/Creatinine Ratio 11.1 8-20 Creatinine 0.9 mg/dL 0.5-1.4 CBC With Electronic Diff 10/10/2006 White Blood Count 10.4 CUMM 4.8-10.8 Abs Basophils 0 0-0.2 Abs Eosinophils 0.2 0-0.6 Absolute Neutrophil Count 6.7 1.5-7.7 Abs Lymphs 2.9 1.0-4.8 Abs Mononuclear 0.5 0-0.8 Basophil % 0.4 % 0-2 Hematocrit 39 % 35-47 Hemoglobin 13.2 g/dL 12.0-16.0 Eosinophil % 2.3 % 0-6 Gran % 64.5 % 38-83 Lymph % 27.9 % 20-45 Mean Corpuscular HGB Cone 34 g/dL 32-36 Mean Corpuscular Hemoglob 26 pg Low 27-31 Mean Corpuscular Volume 78 um3 Low 79-97 Mean Platelet Volume 9.8 um3 7.4-10.4 Mononuclear % 4.9 % 1-9 Platelet Count 227 CUMM 150-450 Red Cell Count 5.06 CUMM 4.2-5.4 Redcell Distribution WDTH 15 % 10.5-15 Laboratory test finding 10/10/2006 FSH 4.13 nl MIU/ML 61 Lutenizing Hormone 5.9 nl MIU/ML 62 Prolactin 9.1 NG/ML 1.0-25.0 TSH 1.56 MIU/ML 0.34-5.60 Laboratory test finding 10/10/2006 Cytology neg (laurita shift) 63 CBC With Electronic 12/04/2005 White Blood Count 9.4 CUMM 4.8-10.8 Diff Hematocrit 37 % 35-47 Hemoglobin 12.8 g/dL 12.0-16.0 Mean Corpuscular HGB Cone 35 g/dL 32-36 Mean Corpuscular Hemoglob 28 pg 27-31 Mean Corpuscular Volume 80 um3 79-97 Mean Platelet Volume 10.2 um3 7.4-10.4 Platelet Count 233 CUMM 150-450 Red Cell Count 4.60 CUMM 4.2-5.4 Redcell Distribution WDTH 14 % 10.5-15 Comp Metabolic Panel 12/04/2005 One Over Creatinine 1.25 Anion Gap 8.0 mmol/L 2-11 64 Albumin/Globulin Ratio 1.3 1-3 Albumin 3.8 GM/DL 3.6-5.4 Alkaline Phosphatase 84 U/L 30-110 Alt (SGPT) 16 U/L 14-54 Ast (Sgot) 15 U/L 12-42 BUN 8 mg/dL 6-24 Calcium 9.0 mg/dL 8.7-10.2 Chloride 104 mmol/L 101-111 Co2 (Carbon Dioxide) 27.0 mmol/L 22-32 Globulin 2.9 GM/DL 2-4 Glucose 79 mg/dL 70-105 Potassium 4.3 mmol/L 3.5-5.0 Sodium 139 mmol/L 135-145 Bilirubin Total 0.3 mg/dL Low 0.4-1.5 Total Protein 6.7 GM/DL 6.2-8.1 BUN/Creatinine Ratio 10.0 8-20 Creatinine 0.8 mg/dL 0.5-1.4 Laboratory test finding 12/04/2005 TSH 1.49 MIU/ML 0.34-5.60 CBC With Manual Diff 12/04/2005 White Blood Count 9.4 CUMM 4.8-10.8 Absolute Neutrophil Count 6.1 Atypical Lymph 2 % 0-6 Anisocytosis 1+ Band Neutrophil 2 % 0-8 Basophil 1 % 0-2 Hematocrit 37 % 35-47 Hemoglobin 12.8 g/dL 12.0-16.0 Eosenophil 4 % 0-6 Lymphocyte 25 % 5-47 Mean Corpuscular HGB Cone 35 g/dL 32-36 Mean Corpuscular Hemoglob 28 pg 27-31 Mean Corpuscular Volume 80 um3 79-97 Monocyte 3 % 0-13 Mean Platelet Volume 10.2 um3 7.4-10.4 Platelet Count 233 CUMM 150-450 Polychromasia SLIGHT Polysegmented Neutrophil 63 % 38-83 Red Cell Count 4.60 CUMM 4.2-5.4 Redcell Distribution WDTH 14 % 10.5-15 Laboratory test finding 08/30/2005 Culture Throat NEG P/DR.JAYESH CBC With Electronic Diff 01/26/2005 White Blood Count 8.5 RBC Red Blood Count 5.66 Hemoglobin 15.7 Hematocrit 47 MCV (Corpuscular Volume) 83 MCH (Corpuscular Hemoglobin) 28 MCHC (Corpuscular Hemog Conc) 33 RDW 14 Platelet Count 223 MPV 9.6 Lymphocytes 33.2 Monocytes 4.4 Eosinophils 2.4 Basophils 0.3 Absolute Basophils 0 Absolute Eosinophils 0.2 Absolute Lymphocytes 2.8 Absolute Monocytes 0.4 CMP Panel 01/26/2005 Albumin 3.7 Alt - SGPT 16 Calcium 9.3 Carbon Dioxide 26.0 Chloride 108 Creatinine 0.9 Glucose Serum 82 Alkaline Phosphatase 92 Potassium 4.2 Protien Total 6.7 Sodium 142 Ast - Sgot 15 BUN - Urea Nitrogen 6 Lipid Panel 01/26/2005 Cholesterol Total 230 Cholesterol/HDL Ratio 6.76 High Density Lipoprotein 34 LDL Low Density Lipoprotein 151 Triglycerides 227 Laboratory test finding 01/26/2005 TSH Thyroid Stimulating Horm 1.17 Ua Inhouse 01/25/2005 Ua Glucose NEG Ua Bilirubin NEG Ua Ketones NEG Ua Specific [place] 1.010 Ua Blood NEG Ua PH 6.5 Ua Protein NEG Ua Urobilinogen NEG Ua Nitrite NEG Ua Leukocytes NEG Laboratory test finding 03/22/2004 TSH 1.08 MIU/ML 0.34-5.60 BHCG Quantitative < 2.1 MIU/ML 0-5 65 CBC With Electronic Diff 03/22/2004 Platelet Count 210 CUMM 150-450 White Blood Count 9.5 CUMM 4.8-10.8 Abs Basophils 0 0-0.2 Abs Eosinophils 0.3 0-0.6 Abs Grans 5.7 1.5-7.7 Abs Lymphs 2.9 1.0-4.8 Abs NRBC 0 Abs Mononuclear 0.6 0-0.8 Basophil % 0.2 % 0-2 Hematocrit 44 % 35-47 Hemoglobin 14.4 g/dL 12.0-16.0 Eosinophil % 3.0 % 0-6 Gran % 60.1 % 38-83 Lymph % 30.7 % 20-45 Mean Corpuscular HGB Cone 33 g/dL 32-36 Mean Corpuscular Hemoglob 27 pg 27-31 Mean Corpuscular Volume 83 um3 79-97 Mean Platelet Volume 11.3 um3 High 7.4-10.4 NRBC % 0 % Mononuclear % 6.0 % 1-9 Red Cell Count 5.30 CUMM 4.2-5.4 Redcell Distribution WDTH 14 % 10.5-15 1 Desirable: <150 Borderline High: 150-199 High: 200-499 Very High: >500 2 Desirable: <200 Borderline High: 200-239 High: >239 3 Low: <40 Desirable: 40-60 High: >60 4 Desirable: <100 Near Optimal: 100-129 Borderline High: 130-159 High: 160-189 Very High: >189 5 Because ethnic data is not always readily available, this report includes an eGFR for both -Americans and non- Americans. The National Kidney Disease Education Program (NKDEP) does not endorse the use of the MDRD equation for patients that are not between the ages of 18 and 70, are , have extremes of body size, muscle mass, or nutritional status, or are non- or non-. According to the National Kidney Foundation, irrespective of diagnosis, the stage of the disease is based on the level of kidney function: Stage Description GFR(mL/min/1.73 m(2)) 1 Kidney damage with normal or decreased GFR 90 2 Kidney damage with mild decrease in GFR 60-89 3 Moderate decrease in GFR 30-59 4 Severe decrease in GFR 15-29 5 Kidney failure <15 (or dialysis) 6 SEE RESULT BELOW Name: MYRA TEE : [address]: Gilma Rocha MD Acct: [id number] Unit: [id number] AGE: 48 Location: [facility] Re04/07/18 SEX: F Status: REG REF SPEC: [id number] TIN: 04/07/18-[address] [facility] [address]: Gilma Rocha MD REQ: [id number] RECD: 04/08/18-1114 STATUS: CLIVE CURRIE DR: Danny Gabriel DO _ ORDERED: TP IMAGE ANALYS, HPV/Thin Prep COMMENTS: [id number] Negative for Intraepithelial lesion or Malignancy A. Ectocervical/Endocervical Specimen Adequacy: Satisfactory of evaluation Transformation zone component identified Patient Information: HPV: High risk HPV RNA testing regardless of pap results. Actual Specimen Date: 04/07/18 Last Menstrual Date: 03/20/18 Date of Last Specimen: 12/17/16 Date Time Test Result Flag (u) Normal Range 04/07/181545 @ HPV RNA Negative Negative @ @ The high-risk HPV types detected by the assay include: 16, @ 18, 31, 33, 35, 39, 45, 51, 52, 56, 58, 59, 66, and 68. Signed by and Reported on: AILYN Rice (ASCP) 9936 This Pap test was evaluated with the assistance of the AdventEnnaPrep Test Imaging System. Due to cytologic findings at the operations and maintenance specialist microscope, comprehensive manual rescreening by a Food Operations Manager may be required. The Pap Smear is a screening test designed to aid in the detection of premalignant and malignant conditions of the uterine cervix. It is not a diagnostic procedure and should not be used as the sole means of detecting cervical cancer. Both false- positive and false- negative reports do occur. Depending on your risk status, a Pap smear should be obtained and evaluated every 1-3 years. END OF REPORT DEPARTMENT OF PATHOLOGY, [address] [place] [address] Valeriano Villarreal M.D. Director [facility] # [id number] 7 mild to moderate osteoarthritis; laterally displaced patella, no acute process/fracture. 8 some infiltrates lower lobes bilaterally 9 Because ethnic data is not always readily available, this report includes an eGFR for both -Americans and non- Americans. The National Kidney Disease Education Program (NKDEP) does not endorse the use of the MDRD equation for patients that are not between the ages of 18 and 70, are , have extremes of body size, muscle mass, or nutritional status, or are non- or non-. According to the National Kidney Foundation, irrespective of diagnosis, the stage of the disease is based on the level of kidney function: Stage Description GFR(mL/min/1.73 m(2)) 1 Kidney damage with normal or decreased GFR 90 2 Kidney damage with mild decrease in GFR 60-89 3 Moderate decrease in GFR 30-59 4 Severe decrease in GFR 15-29 5 Kidney failure <15 (or dialysis) 10 Normal Range 180 to 914 Indeterminate Range 145 to 180 Deficient Range <145 11 Acute inflammation: >10.00 12 Because ethnic data is not always readily available, this report includes an eGFR for both -Americans and non- Americans. The National Kidney Disease Education Program (NKDEP) does not endorse the use of the MDRD equation for patients that are not between the ages of 18 and 70, are , have extremes of body size, muscle mass, or nutritional status, or are non- or non-. According to the National Kidney Foundation, irrespective of diagnosis, the stage of the disease is based on the level of kidney function: Stage Description GFR(mL/min/1.73 m(2)) 1 Kidney damage with normal or decreased GFR 90 2 Kidney damage with mild decrease in GFR 60-89 3 Moderate decrease in GFR 30-59 4 Severe decrease in GFR 15-29 5 Kidney failure <15 (or dialysis) 13 Acute inflammation: >10.00 14 Because ethnic data is not always readily available, this report includes an eGFR for both -Americans and non- Americans. The National Kidney Disease Education Program (NKDEP) does not endorse the use of the MDRD equation for patients that are not between the ages of 18 and 70, are , have extremes of body size, muscle mass, or nutritional status, or are non- or non-. According to the National Kidney Foundation, irrespective of diagnosis, the stage of the disease is based on the level of kidney function: Stage Description GFR(mL/min/1.73 m(2)) 1 Kidney damage with normal or decreased GFR 90 2 Kidney damage with mild decrease in GFR 60-89 3 Moderate decrease in GFR 30-59 4 Severe decrease in GFR 15-29 5 Kidney failure <15 (or dialysis) 15 HAD RECEIVED AN INCMPLETE RAINBOW AT 0700, NO ASCENCIO TOP FOR LACTIC- [id number] 16 Acute inflammation: >10.00 17 Because ethnic data is not always readily available, this report includes an eGFR for both -Americans and non- Americans. The National Kidney Disease Education Program (NKDEP) does not endorse the use of the MDRD equation for patients that are not between the ages of 18 and 70, are , have extremes of body size, muscle mass, or nutritional status, or are non- or non-. According to the National Kidney Foundation, irrespective of diagnosis, the stage of the disease is based on the level of kidney function: Stage Description GFR(mL/min/1.73 m(2)) 1 Kidney damage with normal or decreased GFR 90 2 Kidney damage with mild decrease in GFR 60-89 3 Moderate decrease in GFR 30-59 4 Severe decrease in GFR 15-29 5 Kidney failure <15 (or dialysis) 18 void, clear, yellow 19 SEE RESULT BELOW Name: NAYMYRA : [address]: Hernando Marcelino MD Acct: [id number] Unit: [id number] AGE: 45 Location: [facility] Re10/24/15 SEX: F Status: REG REF SPEC: [id number] TIN: 10/24/15-[address] [facility] [address]: Hernando Marcelino MD REQ: [id number] RECD: 10/25/15-7884 STATUS: COMP _ SOURCE: VAGINAL SPDESC: ORDERED: Genital Culture Procedure Result Reported Site Genital Culture Final 10/27/15- 1238 ML Organism 1 WILLIAM VAGINALIS - PRESUMPTIVE Quantity 3+ Organism 2 NORMAL LAURITA Quantity 2+ Routine genital cultures do not include selective agar for Neisseria gonorrhoeae. Molecular testing offers better test sensitivity and therefore is the preferred test methodology for identifying this organism. * ML - MAIN LAB ([facility]) . END OF REPORT * ML=Testing performed at Main Lab DEPARTMENT OF PATHOLOGY, [facility] [place] [address] Valeriano Villarreal M.D. Director [facility] # [id number] 20 RUN DATE: 11/08/14 [facility] LAB LIVE PAGE 1 RUN TIME: [address] [place] [address] Specimen Inquiry Name: MYRA TEE : [address]: Bhakti Gutierrez MD Acct: [id number] Unit: [id number] AGE: 44 Location: [facility] Re11/05/14 SEX: F Status: DEP ER SPEC: [id number] TIN: 11/05/14 [facility] [address]: Bhakti Gutierrez MD REQ: [id number] RECD: 11/06/14 STATUS: ANA CURRIE DR: [facility] Hernando Marcelino MD _ SOURCE: URINE SPDESC: ORDERED: Urine Culture Procedure Result Verified Site Urine Culture Final 11/08/14- 51 ML Organism 1 ESCHERICHIA COLI [place] Count 75-100,000 (Many) CFU/ML 1. ESCHERICHIA COLI M.I.C. RX --------- ------ Ampicillin 8 S Cefazolin <=4 S Cefepime <=1 S Ceftriaxone <=1 S Ciprofloxacin <=0.25 S Gentamicin <=1 S Levofloxacin <=0.12 S Meropenem <=0.25 S Nitrofurantoin <=16 S Tetracycline <=1 S Pipercillin/Tazobactam <=4 S Trimethoprim/Sulfamethoxazole <=20 S Amoxicillin/Clavulanic Acid 4 S Aztreonam <=1 S Contact the Microbiology Department for any additional antibiotic reporting. END OF REPORT * ML=Testing performed at Main Lab DEPARTMENT OF PATHOLOGY, [facility] [place], [place] [address] Valeriano Villarreal M.D. Director [facility] # [id number] 21 RUN DATE: 10/25/14 [facility] LAB LIVE PAGE 1 RUN TIME: 1514 [facility] [place], [place] [address] Specimen Inquiry Name: NAYMYRA : [address]: Hernando Marcelino MD Acct: [id number] Unit: [id number] AGE: 44 Location: [facility] Re10/24/14 SEX: F Status: REG REF SPEC: [id number] TIN: 10/24/140952 SUBM DR: Hernando Marcelino MD REQ: [id number] RECD: 01/05/15-1310 STATUS: SOUT _ ORDERED: IMAGE ANALYSIS, HPV/Thin Prep, HPV 16/18 GENE FINAL DIAGNOSIS Negative for Intraepithelial lesion or Malignancy A. Ectocervical/Endocervical Specimen Adequacy: Satisfactory of evaluation Transformation zone component identified Patient Information: HPV: High risk HPV RNA testing regardless of pap results. Actual Specimen Date: 10/24/14 Last Menstrual Date: 10/05/14 ?: N Post Menopausal?: N Hysterectomy?: N Date Time Test Result Flag (u) Normal Range 10/24/14 0952 HPV RNA Negative Negative The high-risk HPV types detected by the assay include: 16, 18, 31, 33, 35, 39, 45, 51, 52, 56, 58, 59, 66, and 68. Signed (signature on file) Juan Fontana 10/25/14 1514 This Pap test was evaluated with the assistance of the AdventEnnaPrep Test Imaging System. Due to cytologic findings at the operations and maintenance specialist microscope, comprehensive manual rescreening by a Food Operations Manager may be required. The Pap Smear is a screening test designed to aid in the detection of premalignant and malignant conditions of the uterine cervix. It is not a diagnostic procedure and should not be used as the sole means of detecting cervical cancer. Both false- positive and false- negative reports do occur. Depending on your risk status, a Pap smear should be obtained and evaluated every 1-3 years. END OF REPORT * ML=Testing performed at Main Lab DEPARTMENT OF PATHOLOGY, [address] [address] Valeriano Vlilarreal M.D. Director [facility] # [id number] 22 The high-risk HPV types detected by the assay include: 16, 18, 31, 33, 35, 39, 45, 51, 52, 56, 58, 59, 66, and 68. 23 Female urine specimens have been self-validated by [facility] and have been granted conditional assay approval by [facility]. 24 Consistent with previous results. 25 Because ethnic data is not always readily available, this report includes an eGFR for both -Americans and non- Americans. The National Kidney Disease Education Program (NKDEP) does not endorse the use of the MDRD equation for patients that are not between the ages of 18 and 70, are , have extremes of body size, muscle mass, or nutritional status, or are non- or non-. According to the National Kidney Foundation, irrespective of diagnosis, the stage of the disease is based on the level of kidney function: Stage Description GFR(mL/min/1.73 m(2)) 1 Kidney damage with normal or decreased GFR 90 2 Kidney damage with mild decrease in GFR 60-89 3 Moderate decrease in GFR 30-59 4 Severe decrease in GFR 15-29 5 Kidney failure <15 (or dialysis) 26 <5.0 Negative 5.0 - 25.0 Indeterminate >25.0 Positive 27 RESULT: Ectocervical/Endocervical 28 For types 16, 18, 31, 33, 35, 39, 45, 51, 52, 56, 58, 59 and 68. Test Performed by: [address] [address] Hangar Attendant: Jose Watkins III, M.D. 29 Low reactive results are indeterminate. This sample has been reflexed for additional testing. 30 Because ethnic data is not always readily available, this report includes an eGFR for both -Americans and non- Americans. The National Kidney Disease Education Program (NKDEP) does not endorse the use of the MDRD equation for patients that are not between the ages of 18 and 70, are , have extremes of body size, muscle mass, or nutritional status, or are non- or non-. According to the National Kidney Foundation, irrespective of diagnosis, the stage of the disease is based on the level of kidney function: Stage Description GFR(mL/min/1.73 m(2)) 1 Kidney damage with normal or decreased GFR 90 2 Kidney damage with mild decrease in GFR 60-89 3 Moderate decrease in GFR 30-59 4 Severe decrease in GFR 15-29 5 Kidney failure <15 (or dialysis) 31 Result in log IU/mL is Undetected. The quantification range of this assay is 43 IU/mL to 69,000,000 IU/mL (1.63 log IU/mL to 7.84 log IU/mL). Testing was performed by the MONICA AmpliPrep/MONICA TaqMan HCV Test ([employer] Test Performed by: [place] [address] Hangar Attendant: Jose Watkins III, M.D. 32 awaiting HPV results 33 RUN DATE: 04/20/13 [facility] LAB LIVE PAGE 1 RUN TIME: [address] [place] [address] Specimen Inquiry Name: MYRA TEE : [address]: Hernando Marcelino MD Acct: [id number] Unit: [id number] AGE: 43 Location: [facility] Re04/19/13 SEX: F Status: REG REF SPEC: [id number] TIN: 04/19/13-12[address] [facility] [address]: Hernando Marcelino MD REQ: [id number] RECD: 04/19/13 STATUS: COMP _ SOURCE: [facility]: ORDERED: GC/Chlam RNA QUERIES: Medent Number [id number] Procedure Result Verified Site Chlamydia Trachomatis RNA Final 04/20/13- 1331 ML NEGATIVE for Chlamydia trachomatis rRNA GC (N. gonorrhoeae) RNA Final 04/20/13- 1337 ML NEGATIVE for Neisseria gonorrhoeae rRNA A negative result does not preclude the presence of a C. trachomatis or N. gonorrhoeae infection because results are dependent on adequate specimen collection, absence of inhibitors, and sufficient rRNA to be detected. Test results may be affected by improper specimen collection, improper storage, technical error, or specimen mixup. Limitations of the Procedure: The Aptima Combo 2 Assay is not intended for the evaluation of suspected sexual abuse or for other medico-legal indications. For those patients for whom a false positive result may have adverse psychosocial impact, the [facility] recommends retesting by a method using an alternate technology. Therapeutic failure or success cannot be determined with the Aptima Combo 2 Assay since nucleic acid may persist following appropriate antimicrobial therapy. Results from the Aptima Combo 2 Assay should be interpreted in conjunction with other laboratory and clinical data available to the clinican. CONTINUED ON NEXT PAGE * ML=Testing performed at Main Lab DEPARTMENT OF PATHOLOGY, [facility] [place] [address] Valeriano Villarreal M.D. Director [facility] Permit #[id number] RUN DATE: 04/20/13 [facility] LAB LIVE PAGE 2 RUN TIME: [address] [place] [address] Specimen Inquiry Patient: MYRA TEE [id number] (Continued) Specimen: [id number] Collected: 04/19/13 Received: 04/19/13 (Continued) Procedure Result Verified Site GC (N. gonorrhoeae) RNA Final (continued) 04/20/13- 1334 Performance characteristics for detecting C. trachomatis and N. gonorrhoeae are derived from high prevalence populations. Positive results in low prevalence populations should be interpreted carefully with the understanding that the likelihood of a false positive may be higher than a true positive. END OF REPORT * ML=Testing performed at Main Lab DEPARTMENT OF PATHOLOGY, [facility] [place], [place] [address] Valeriano Villarreal M.D. Director [facility] Permit #[id number] 34 RUN DATE: 04/20/13 [facility] LAB LIVE PAGE 1 RUN TIME: 1122 [facility] [place], [place] [address] Specimen Inquiry Name: MYRA TEE : [address]: Hernando Marcelino MD Acct: [id number] Unit: [id number] AGE: 43 Location: [facility] Re04/19/13 SEX: F Status: REG REF SPEC: [id number] TIN: 04/19/13-[address]: Hernando Marcelino MD REQ: [id number] RECD: 04/19/13-1832 STATUS: SOUT _ ORDERED: IMAGE ANALYSIS, HPV / Thin Prep FINAL DIAGNOSIS Negative for Intraepithelial lesion or Malignancy COMMENTS: Specimen sent to [facility] in [place], [place] on 04/20/13 by [id number] at 1105. Results will be reported separately. A. Ectocervical/Endocervical Specimen Adequacy: Satisfactory of evaluation Transformation zone component identified Patient Information: HPV: High risk HPV DNA testing regardless of pap results. Actual Specimen Date: 04/19/13 Last Menstrual Date: 04/07/13 Cautery: N IUD: N Lesion, grossly demonstrate: N ?: N Post Menopausal?: N Hysterectomy?: N Signed (signature on file) AILYN Rice (ASCP) 04/20 1121 This Pap test was evaluated with the assistance of the ThinPrep Test Imaging System. Due to cytologic findings at the operations and maintenance specialist microscope, comprehensive manual rescreening by a Food Operations Manager may be required. The Pap Smear is a screening test designed to aid in the detection of premalignant and malignant conditions of the uterine cervix. It is not a diagnostic procedure and should not be used as the sole means of detecting cervical cancer. Both false- positive and false- negative reports do occur. Depending on your risk status, a Pap smear shoudl be obtained and evaluated every 1-3 years. END OF REPORT * ML=Testing performed at Main Lab DEPARTMENT OF PATHOLOGY, [address] [address] Valeriano Villarreal M.D. Director [facility] Permit #[id number] 35 It is recognized that currently available assays for the detection of antibodies to HIV-1 and/or HIV-2 may not detect all infected individuals. HIV antibodies may be undetectable in some stages of the infection and in some clinical conditions. The performance of this assay has not been established for populations of infants or children. Assayed by Chemiluminescence Microparticle Immunoassay on the Siemens Advia Centaur CP. Values obtained with different methods or kits cannot be used interchangeably.The diagnostic specificity of the ADVIA Centaur 1/O/2 Enhanced assay in the low risk population was 99.90% (6052/6058) with a 95% confidence interval of 99.78 to 99.96%. 36 RUN DATE: 04/19/12 [facility] NMI LIVE PAGE 1 RUN TIME: 1037 Specimen Inquiry RUN USER: INTERFACE Name: MYRA TEE Status: REG REF Re04/17/12 Age/Sex: 42/F Unit#: [id number] Location: [facility] : 66 SPEC #: [id number] TIN: 04/17/12 STATUS: ANA REQ #: [id number] RECD: 04/17/[address]: Missy CROWLEY,Hernando Hubbard SOURCE: GENITAL ENTR: 04/17/[address]: YONG: VAGINAL ORDERED: GENITAL CULTURE COMMENTS: SCREEN FOR BACTERIAL VAGINOSIS QUERIES: MEDENT REQUISITION # [id number] ACT WKST: Abundio 04/19/12 #1 Procedure Result Verified Site > GENITAL CULTURE Final 04/19/12- 1037 ML Organism 1 BETA STREP GROUP B Susceptibility testing of penicillins and other B-lactams approved by FDA for treatment of Streptococcus pyogenes (Group A Strep) and Streptococcus agalactiae (Group B Strep) is not necessary for clinical purposes and need not be done routinely, since as with vancomycin, resistant strains have not been recognized. (CLSI N252-K96;p.66) Positive isolates will be saved for one week. Please call the Microbiology Laboratory if further susceptibility testing is needed. QUANTITY MANY Organism 2 NORMAL LAURITA QUANTITY MODERATE - [facility] Permit #[id number] [facility] [address] DEPARTMENT OF PATHOLOGY, [facility] [place], [place] [address] [facility] Permit #[id number] Farooq Granda M.D. Web Architect 37 hpv neg pap repair only endom cell c/w being at tail end of period - she had scant blood at time of pap gc/chlam neg had b strep on cult 38 RUN DATE: 04/21/12 [facility] NMI LIVE PAGE 1 RUN TIME: 1327 Specimen Inquiry RUN USER: INTERFACE Name: MYRA TEE Yaa Status: REG REF Re04/17/12 Age/Sex: 42/F Unit#: [id number] Location: [facility] : 66 SPEC #: [id number] TIN: 04/17/12 STATUS: COMP REQ #: [id number] RECD: 04/17/12-[address]: Hernando Marcelino MD SOURCE: THIN PREP ENTR: 04/17/12-[address]: ALAINAC: ORDERED: GC/CHL APTIMA QUERIES: MEDENT REQUISITION # [id number] ACT WKST: GCCHL 04/21/12 #1 Procedure Result Verified Site > CHLAMYDIA TRACHOMATIS RNA Final 04/21/12- 1327 ML NEGATIVE FOR CHLAMYDIA TRACHOMATIS rRNA A negative result does not preclude the presence of a C.trachomatis or N.gonorrhoeae infection because results are dependent on adequate specimen collection, absence of inhibitors, and sufficient rRNA to be detected. Test results may be affected by improper specimen collection, improper specimen storage, technical error, or specimen mixup. Limitations of the Procedure: The Aptima Combo 2 Assay is not intended for the evaluation of suspected sexual abuse or for other medico-legal indications. For those patients for whom a false positive result may have adverse psychosocial impact, the CDC recommends retesting by a method using an alternate technology. Therapeutic failure or success cannot be determined with the Aptima Combo 2 Assay since nucleic acid may persist following appropriate antimicrobial therapy. Results from the APTIMA Combo 2 Assay should be interpreted in conjunction with other laboraotry and clinical data available to the clinician. Performance characteristics for detecting C. trachomatis and N. gonorrhoeae are derived from high prevalence populations. Positive results in low prevalence populations should be interpreted carefully with the understanding that the likelihood of a false positive may be higher than a true positive. DEPARTMENT OF PATHOLOGY, [address] [place] [address] [facility] Permit #[id number] Farooq Granda M.D. Web Architect RUN DATE: 04/21/12 [facility] NMI LIVE PAGE 2 RUN TIME: 1327 Specimen Inquiry RUN USER: INTERFACE Name: MYRA TEE Status: REG REF Re04/17/12 Age/Sex: 42/F Unit#: [id number] Location: [facility] : 66 -- -- CONTINU ED Procedure Result Verified Site > GC (N. GONORRHOEAE) RNA Final 04/21/12- 1327 ML NEGATIVE FOR NEISSERIA GONORRHOEAE rRNA A negative result does not preclude the presence of a C.trachomatis or N.gonorrhoeae infection because results are dependent on adequate specimen collection, absence of inhibitors, and sufficient rRNA to be detected. Test results may be affected by improper specimen collection, improper specimen storage, technical error, or specimen mixup. Limitations of the Procedure: The Aptima Combo 2 Assay is not intended for the evaluation of suspected sexual abuse or for other medico-legal indications. For those patients for whom a false positive result may have adverse psychosocial impact, the [facility] recommends retesting by a method using an alternate technology. Therapeutic failure or success cannot be determined with the Aptima Combo 2 Assay since nucleic acid may persist following appropriate antimicrobial therapy. Results from the APTIMA Combo 2 Assay should be interpreted in conjunction with other laboraotry and clinical data available to the clinician. Performance characteristics for detecting C. trachomatis and N. gonorrhoeae are derived from high prevalence populations. Positive results in low prevalence populations should be interpreted carefully with the understanding that the likelihood of a false positive may be higher than a true positive. - [facility] Permit #[id number] [facility] [place] [address] DEPARTMENT OF PATHOLOGY, [facility] [employer] [place], [place] [address] [facility] Permit #[id number] Valeriano Villarreal M.D. Director Asael Vo M.D. Web Architect 39 ---- RUN DATE: 04/24/12 [facility] NMI LIVE PAGE 1 RUN TIME: 905 Specimen Inquiry RUN USER: INTERFACE -- Name: MYRA TEE Yaa Status: REG REF Re04/17/12 Age/Sex: 42/F Unit#: [id number] Location: [facility] : 66 -- Specimen: [id number] SOUT Spec Date:04/17/[address] [facility] [address]: Hernando knight MD Spec Type: CYTOLOGY Received:04/20/12 Copies to: SOURCE ECTOCERVICAL/ENDOCERVICAL Thin Prep with Reflex HPV Test PATIENT INFORMATION ACTUAL COLLECTION DATE: 04/17/12 ? No POST MENOPAUSAL? No LAST MENSTRUAL PERIOD: 04/11/12 ADEQUACY OF SPECIMEN Satisfactory for evaluation * Transformation zone component identified * DIAGNOSIS NEGATIVE FOR INTRAEPITHELIAL LESION OR MALIGNANCY * Reactive cellular changes associated with * Inflammation (includes typical repair) * Endometrial cells in a woman over or equal to 40 years of age * See note. NOTE Specimen sent to [facility] in [place], [place] on 04/20/12 by DB at 1044. Results will be reported separately in an addendum. Endometrial cells after age 40, particularly out of phase or after menopause may be associated with benign endometrium, hormonal alterations and less commonly, endometrial/uterine abnormalities. Clinical correlation is recommended. Endometrial cells correlate with the menstrual history provided. -- DEPARTMENT OF PATHOLOGY, [address] [address] [facility] Permit #[id number] Valeriano Villarreal M.D. Director Asael Vo M.D. Vendor Specialist Dir renan -- -- RUN DATE: 04/24/12 [facility] NMI LIVE PAGE 2 RUN TIME: 905 Specimen Inquiry RUN USER: INTERFACE -- Name: MYRA TEE Status: REG REF Re04/17/12 Age/Sex: 42/F Unit#: [id number] Location: [facility].B. : 66 -- -- CONTINUED -- ADDENDUM Addendum #1 Entered: 04/24/12 [facility] Human Papilloma Virus test results received with preparation and diagnosis completed by [facility], [place], [place]. Results: NEGATIVE High Risk (for types 16, 18, 31, 33, 35, 39, 45, 51, 52, 56, 58, 59, 68) This test was developed and its performance characteristics determined by Laboratory Medicine and Pathology, [facility], [place], [place]. It has not been cleared or approved by the U.S. Food and Drug Administration. Test Performed by: [facility] Dpt of lab Med and Pathology [address] [place] [address] Hangar Attendant: Jose Watkins III, M.D. Original hard copy report from [facility] is available upon request by calling Pathology at [phone]. Addendum Review Marivel CHAVARRIA([facility]) 04/24/12 -- This Pap test was evaluated with the assistance of the AdventEnnaPrep Pap Test Imaging System. Due to cytologic findings at the operations and maintenance specialist microscope, comprehensive manual rescreening by a Food Operations Manager was required. The Pap Smear is a screening test designed to aid in the detection of premalign ant and malignant conditions of the uterine cervix. It is not a diagnostic procedure a nd should not be used as the sole means of detecting cervical cancer. Both false- positiv e and false-negative reports do occur. Depending on your risk status, a Pap smear celia uld be obtained and evaluated every one to three years. -- DEPARTMENT OF PATHOLOGY, [address] [address] [facility] Permit #[id number] Farooq Granda M.D. Vendor Specialist Dir urrutia -- -- RUN DATE: 04/24/12 [facility] NMI LIVE PAGE 3 RUN TIME: 905 Specimen Inquiry RUN USER: INTERFACE -- Name: MYRA TEE Status: REG REF Re04/17/12 Age/Sex: 42/F Unit#: [id number] Location: [facility] : 66 -- -- CONTINUED -- Initial evaluation performed by Vickie TILLEY([facility]) 04/20/12 Final Interpretation electronically signed by: ASAEL VO 04/20/12 1548 -- -- DEPARTMENT OF PATHOLOGY, [address] [address] [facility] Permit #[id number] Valeriano Villarreal M.D. Director Asael Vo M.D. Vendor Specialist Dir renan -- 40 PLEASE NOTE NEW REFERENCE RANGE. 41 Anion gap measurement may be of limited value in the presence of any alkalosis, especially in a combined acid base disorder. . 42 A metabolite of Naproxen, O-desmethylnaproxen, has been shown to interfere with the Jendrassik-Ludell method for measuring total bilirubin. Samples from patients who have taken Naproxen have shown spurious elevation in total bilirubin levels. 43 Because ethnic data is not always readily available, this report includes an eGFR for both -Americans and non- Americans. The National Kidney Disease Education Program (NKDEP) does not endorse the use of the MDRD equation for patients that are not between the ages of 18 and 70, are , have extremes of body size, muscle mass, or nutritional status, or are non- or non-. According to the National Kidney Foundation, irrespective of diagnosis, the stage of the disease is based on the level of kidney function: Stage Description GFR(mL/min/1.73 m(2)) 1 Kidney damage with normal or decreased GFR 90 2 Kidney damage with mild decrease in GFR 60-89 3 Moderate decrease in GFR 30-59 4 Severe decrease in GFR 15-29 5 Kidney failure <15 (or dialysis) 44 CHOLESTEROL INTERPRETATION: Desirable: Less than 200 MG/DL Borderline-High Risk: 200-239 MG/DL High-Risk: 240 MG/DL and over 45 HDL INTERPRETATION: Undesirable: High Risk: Less than 40 MG/DL Desirable: Low Risk: Greater than 60 MG/DL 46 LDL INTERPRETATION: Low Risk Optimal Level: LDL Less than 100 MG/DL Near or Above Optimal: LDL 100-129 MG/DL Borderline High Risk: LDL 130-159 MG/DL High Risk: LDL 160-189 MG/DL Very High Risk: LDL Greater than 189 MG/DL 47 ---- RUN DATE: 04/12/11 [facility] NMI LIVE PAGE 1 RUN TIME: 1143 Specimen Inquiry RUN USER: INTERFACE -- Name: NAYMYRA Status: REG REF Re04/11/11 Age/Sex: 41/F Unit#: [id number] Location: [facility] : 66 -- Specimen: [id number] SOUT Spec Date: 04/11/[address]: Hernando castro MD Spec Type: CYTOLOGY Received: 04/12/11-18 Copies to: SOURCE ECTOCERVICAL/ENDOCERVICAL Thin Prep with Reflex HPV Test PATIENT INFORMATION ACTUAL COLLECTION DATE: 04/11/11 ? No POST MENOPAUSAL? No HYSTERECTOMY? No LAST MENSTRUAL PERIOD: 04/08/11 ADEQUACY OF SPECIMEN Satisfactory for evaluation * Transformation zone component identified * DIAGNOSIS NEGATIVE FOR INTRAEPITHELIAL LESION OR MALIGNANCY * This Pap test was evaluated with the assistance of the Advent[facility]naPrep Pap Test Imaging System. The Pap Smear is a screening test designed to aid in the detection of premalign ant and malignant conditions of the uterine cervix. It is not a diagnostic procedure a nd should not be used as the sole means of detecting cervical cancer. Both false- positiv e and false-negative reports do occur. Depending on your risk status, a Pap smear celia uld be obtained and evaluated every one to three years. Final Interpretation electronically signed by: Vickie TILLEY([facility]) 04/12/11 114 3 -- -- DEPARTMENT OF PATHOLOGY, [address] [place] [address] [facility] Permit #[id number] Valeriano Villarreal M.D. Director Asael Vo M.D. Vendor Specialist renan -- 48 FINAL INTERPRETATION: No HIV antibody is detected. . This information has been disclosed to you from confidential records which are protected by [facility] law. State law prohibits you from making further disclosure of this information without the specific written consent of the person to whom it pertains, or as otherwise permitted by law. Any unauthorized further disclosure in violation of state law may result in a fine or intermediate sentence or both. General authorization for the release of medical or other information is not, except in limited circumstances set forth in Part 63, Title 10, of [facility], sufficient authorization for further disclosure. Disclosure of confidential HIV information that occurs as the result of a general authorization for the release of medical or other information will be in violation of the state law and may result in a fine or a intermediate sentence. . 49 NEGATIVE FOR NEISSERIA GONORRHOEAE rRNA A negative result does not preclude the presence of a C.trachomatis or N.gonorrhoeae infection because results are dependent on adequate specimen collection, absence of inhibitors, and sufficient rRNA to be detected. Test results may be affected by improper specimen collection, improper specimen storage, technical error, or specimen mixup. 50 nl hpv 51 ---- RUN DATE: 03/27/[facility] RUN TIME: 740 Specimen Inquiry RUN USER: INTERFACE -- [id number] Status: REG REF Re03/21/11 Age/Sex: 41/F Unit#: [id number] Location: [facility]. : 66 -- Specimen: [id number] SOUT Spec Date: 03/21/[address]: Hernando castro MD Spec Type: CYTOLOGY Received: 03/22/11-1401 Copies to: SOURCE ECTOCERVICAL/ENDOCERVICAL High Risk HPV DNA Testing Only PATIENT INFORMATION ACTUAL COLLECTION DATE: 03/21/11 PATIENT HISTORY: High risk Human papilloma virus testing only. DIAGNOSIS HPV testing only is requested by clinician. NOTE Specimen sent to [facility] in [place], [place] on 03/22/11 by DB at 1814. Results will be reported separately in an addendum. ADDENDUM Addendum #1 Entered: 03/27/1182 [facility] Human Papilloma Virus test results received with preparation and diagnosis completed by [facility], [place], [place]. Results: NEGATIVE High Risk (for types 16, 18, 31, 33, 35, 39, 45, 51, 52, 56, 58, 59, 68) This test was developed and its performance characteristics determined by Laboratory Medicine and Pathology, [facility], [place], [place]. It has not been cleared or approved by the U.S. Food and Drug Administration. Test Performed by: [facility] Dpt of lab Med and Pathology [address] [place] [address] Hangar Attendant: Jose Watkins III, M.D. Original hard copy report from [facility] is available upon request by calling Pathology at [phone]. -- DEPARTMENT OF PATHOLOGY, [address] [place] [address] [facility] Permit #[id number] Farooq Granda M.D. Vendor Specialist Dir renan -- -- RUN DATE: 03/27/11 [facility] NMI LIVE PAGE 2 RUN TIME: 740 Specimen Inquiry RUN USER: INTERFACE -- Name: MYRA TEE Status: REG REF Re03/21/11 Age/Sex: 41/F Unit#: [id number] Location: [facility]. : 66 -- -- CONTINUED -- ADDENDUM (Continued) Addendum Review Vickie TILLEY([facility]) 03/27/11 -- Final Interpretation electronically signed by: Vickie TILLYE([facility]) 03/27/11 073 8 -- -- DEPARTMENT OF PATHOLOGY, [address] [place] [address] [facility] Permit #[id number] Valeriano Villarreal M.D. Director Asael Vo M.D. Vendor Specialist Dir renan -- 52 Warning: A positive result is not useful for establishing a diagnosis of syphilis. In most situations, such a result may reflect a prior treated infection; a negative result can exclude a diagnosis of syphilis except for incubating or early primary disease. 53 NEGATIVE FOR CHLAMYDIA TRACHOMATIS rRNA A negative result does not preclude the presence of a C.trachomatis or N.gonorrhoeae infection because results are dependent on adequate specimen collection, absence of inhibitors, and sufficient rRNA to be detected. Test results may be affected by improper specimen collection, improper specimen storage, technical error, or specimen mixup. 54 nitrazine neutral 55 ALIQUOT(S) WERE PREPARED BY KRISTINA ON 06/05/07 AT 2002. 56 Anion gap measurement may be of limited value in the presence of any alkalosis, especially in a combined acid base disorder. . 57 If is still suspected, please repeat test after 48 to 72 hours. . 58 FINAL: NO GROWTH DAY 2 (<1,000 CFU/mL) 59 lat pa wnl 60 Anion gap measurement may be of limited value in the presence of any alkalosis, especially in a combined acid base disorder. . 61 NORMAL RANGE MALES 1 - 20 NORMALLY MENSTRUATING FEMALES - Follicular Phase 3 - 9 - Mid-Cycle Peak 4 - 23 - Luteal Phase 1 - 6 POSTMENOPAUSAL FEMALES 16 - 114 . 62 NORMAL RANGE MALES 2 - 12 NORMALLY MENSTRUATING FEMALES - Follicular Phase 1 - 18 - Mid-Cycle Peak 24 - 105 - Luteal Phase 0.6 - 20 POSTMENOPAUSAL FEMALES 15 - 62 . 63 ---- RUN DATE: 10/17/06 [facility] NMI LIVE PAGE 1 RUN TIME: 1335 Specimen Inquiry RUN USER: INTERFACE [id number] MYRA TEE 36/F <REG REF 10/10> ([id number]) Hernando Rosario MD -- Specimen: [id number] SOUT Spec Date: 10/10/[address]: Hernando castro MD Spec Type: CYTOLOGY Received: 10/14/06-3248 Copies to: SOURCE ECTOCERVICAL/ENDOCERVICAL Thin Prep with Reflex HPV Test PATIENT INFORMATION ACTUAL COLLECTION DATE: 10/10/06 ? NO POST MENOPAUSAL? No HYSTERECTOMY? No PREVIOUS ABNORMAL PAP SMEARS No LAST MENSTRUAL PERIOD: 09/21/06 PATIENT HISTORY: 09/29/06 SPOTTED ADEQUACY OF SPECIMEN Satisfactory for evaluation * Transformation zone component identified * DIAGNOSIS NEGATIVE FOR INTRAEPITHELIAL LESION OR MALIGNANCY * Shift in laurita suggestive of bacterial vaginosis * Reactive cellular changes associated with * Inflammation (includes typical repair) * The Pap Smear is a screening test designed to aid in the detection of premalign ant and malignant conditions of the uterine cervix. It is not a diagnostic procedure a nd should not be used as the sole means of detecting cervical cancer. Both false- positive and false-negative reports do occur. Depending on your risk status, a Pap smear celia uld be obtained and evaluated every one to three years. Signed Vickie TILLEY([facility]) 10/17/06 (p reliminary) Electronically signed VALERIANO VILLARREAL MD 10/17/06 -- -- DEPARTMENT OF PATHOLOGY, [address] [place] [address] [facility] Permit #[id number] Hernando Holder II, M.D. Director Valeriano Villarreal M.D. Vendor Specialist D irector -- 64 Anion gap measurement may be of limited value in the presence of any alkalosis, especially in a combined acid base disorder. . 65 * MALES: < 5.0 MIU/ML NON FEMALES < 5.0 MIU/ML APPROX GESTATIONAL AGE APPROX HCG RANGE 0-1 WEEK < 5.0-50 1-2 WEEKS 50-500 2-3 WEEKS 100-5000 3-4 WEEKS 500-10,000 1-2 MONTHS 10,000-200,000 2-3 MONTHS 15,000-100,000 PLEASE NOTE: The intended use of this assay is the quantitative determination of HCG in human serum or plasma for the early detection of . These assays should not be used to diagnose any condition unrelated to . If an HCG level is inconsistent with, or unsupported by, clinical evidence, results should be confirmed by an alternate HCG method. . Procedures Date CPT Code Description Status Comment 06/10/2018 01593 Omt 7-8 Body Regions Completed 04/19/2018 Mammogram Completed states normal 03/30/2018 31589 Omt 7-8 Body Regions Completed 03/30/2018 69545 Brief Emotional/Behav Assessment W/ Completed Scoring Doc Per Standard Inst 07/28/2017 52198 Omt 7-8 Body Regions Completed 07/28/2017 28042 X-Ray Knee, Complete Completed 07/07/2017 90109 X-Ray Chest Two Views Completed 01/17/2017 61162 Omt 7-8 Body Regions Completed 10/30/2016 37023 Omt 7-8 Body Regions Completed 09/25/2016 14329 Omt 7-8 Body Regions Completed 09/10/2016 45461 X-Ray Shoulder Two Or More Views Completed 08/14/2016 10706 Omt 7-8 Body Regions Completed 05/03/2016 29573 Omt 3 To 4 Body Regions Involved Completed 05/26/2015 51356 Bronchospasm Evaluation Pre & Post Completed 11/14/2014 39424 X-Ray Hip One View Completed 11/14/2014 96965 X-Ray Hip One View Completed 11/14/2014 63929 X-Ray Pelvis, Ap Only Completed 11/14/2014 82868 X-Ray Hip One View Completed 11/14/2014 46472 X-Ray Knee, Complete Completed 08/15/2014 83486 Bronchospasm Evaluation Pre & Post Completed 12/03/2013 48216 Bronchospasm Evaluation Pre & Post Completed 12/03/2013 53334 X-Ray Chest Two Views Completed 11/26/2013 86867 Oximetry, Multiple Determinations (Eg, Completed During Exercise) 11/26/2013 41855 Bronchospasm Evaluation Pre & Post Completed 10/11/2013 77167 Demo &/Or Eval Of PT Util Aerosol Completed Gener/Nebul/Inhaler Or Ippb 04/17/2012 80910 Pure Tone, Threshold Completed 02/20/2012 13666 Visual Acuity Screening Test Completed 01/31/2012 25551 Bronchospasm Evaluation Pre & Post Completed 10/26/2010 19865 Bronchospasm Evaluation Pre & Post Completed 04/13/2010 22518 Bronchospasm Evaluation Pre & Post Completed 02/16/2010 08976 allergy skin testing Completed 02/01/2010 60382 Bronchospasm Evaluation Pre & Post Completed 05/12/2009 33563 Bronchospasm Evaluation Pre & Post Completed 02/12/2007 63194 X-Ray Chest Two Views Completed 12/11/2006 45619 Bronchospasm Evaluation Pre & Post Completed 03/05/2005 73327 Spirometry Completed 02/01/2005 98839 Bronchospasm Evaluation Pre & Post Completed 02/01/2005 76933 Bronchospasm Evaluation Pre & Post Completed 01/24/2005 70782 X-Ray Chest Two Views Completed 06/09/2003 07264 Excise Benign Lesion 1.1-2CM Completed Trunk/Arm/Leg Encounters Type Date Location Provider CPT E/M Dx Office Visit 04/28/2018 9:40a Main Office Tracey Nix, P.A. 09723 H26.9 Z01.818 F17.210 K21.9 J44.9 F43.23 Z13.220 Z12.11 E66.9 Z68.42 Office Visit 03/30/2018 8:30a Main Office Danny Gabriel D.O. 97167 M54.32 J01.90 F17.210 Z13.89 M99.08 M99.01 M99.02 M99.04 M99.05 M99.03 M99.00 Office Visit 03/25/2018 3:00p [place] [address] J01.90 J44.9 F17.210 Office Visit 10/27/2017 10:20a Main Office Lv Aguilar.A. 53149 J01.90 R05 J44.9 Office Visit 07/28/2017 4:45p Main Office Danny Gabriel D.O. 16849 M25.561 M99.03 M99.05 M99.04 M99.08 M99.02 M99.00 M99.01 M54.5 M54.2 M22.41 Office Visit 07/26/2017 9:30a Main Office Lv Aguilar.A. 87369 M25.561 M54.2 M54.5 Office Visit 07/11/2017 3:20p Main Office Lv Aguilar.A. 36451 J44.0 J01.90 R05 Office Visit 07/07/2017 9:40a Main Office Lv Aguilar.A. 90355 R06.2 R05 J01.90 J18.9 Office Visit 02/17/2017 1:15p Main Office Danny Gabriel D.O. 85021 K44.9 Office Visit 01/17/2017 12:55p Main Office Danny Gabriel D.O. 25808 M99.01 M99.03 M99.00 M99.02 M99.04 M99.05 M99.07 R40.0 T43.215A F33.2 Office Visit 10/30/2016 3:45p Main Office Danny Gabriel D.O. 57656 M25.512 F33.2 M99.01 M99.00 M99.03 M99.02 M99.04 M99.05 M99.07 Office Visit 09/25/2016 2:15p Main Office Danny Gabriel D.O. 80733 M25.512 F33.2 M99.01 M99.00 M99.03 M99.02 M99.04 M99.05 M99.07 Office Visit 09/10/2016 2:45p Main Office Danny Gabriel D.O. 90027 M25.512 Office Visit 08/14/2016 3:45p Main Office Danny Gabriel D.O. 00203 M54.32 M43.6 M99.00 M99.01 M99.03 M99.02 M99.04 M99.05 M99.06 Office Visit 08/08/2016 12:05p [place] [address] J10.1 Office Visit 05/03/2016 12:55p Main Office Danny Gabriel D.O. 76485 R60.1 M54.32 M54.5 M99.03 M99.04 M99.05 Office Visit 04/01/2016 5:00p Main Office Hernando Marcelino M.D. 32625 J01.00 Office Visit 10/27/2015 2:00p Main Office Hernando Marcelino M.D. 51705 N76.0 N91.1 N83.20 Office Visit 10/24/2015 3:45p Main Office Hernando Marcelino M.D. 42790 N91.2 N76.0 R10.2 Office Visit 05/26/2015 4:15p Main Office Hernando Marcelino M.D. 91660 496 305.1 530.81 V65.40 Office Visit 02/13/2015 10:00a Main Office Hernando Marcelino M.D. 96342 491.21 112.0 Office Visit 01/09/2015 10:15a Main Office Hernando Marcelino M.D. 70184 719.45 719.46 734 Office Visit 11/14/2014 11:15a Main Office Hernando Marcelino M.D. 62850 595.0 719.45 719.46 278.02 717.7 789.30 Office Visit 10/24/2014 9:15a Main Office Hernando Marcelino M.D. 66272 530.81 496 V72.31 V70.0 V76.2 625.1 Office Visit 08/15/2014 3:00p Main Office Hernando Marcelino M.D. 61448 530.81 496 V65.49 v04.81 v07.2 Office Visit 07/18/2014 10:15a Main Office Hernando Marcelino M.D. 42581 461.1 496 Office Visit 05/12/2014 9:15a Main Office Danny Gabriel D.O. 30571 789.04 780.79 626.4 788.41 V72.41 Office Visit 03/04/2014 9:05a Main Office Hernando Marcelino M.D. 58051 493.90 496 530.81 300.02 Office Visit 12/03/2013 3:00p Main Office Hernando Marcelino M.D. 42825 493.90 496 786.09 786.2 Office Visit 11/26/2013 9:05a Main Office Hernando Marcelino M.D. 85704 496 493.90 530.81 300.02 786.2 Office Visit 10/11/2013 11:30a Main Office Hernando Marcelino M.D. 99270 300.02 496 465.9 786.52 Office Visit 09/27/2013 9:30a Main Office Hernando Marcelino M.D. 08737 780.52 799.22 296.32 V58.83 Office Visit 04/19/2013 9:05a Main Office Hernando Marcelino M.D. 81080 719.45 530.81 784.49 278.02 296.32 496 V70.0 V76.10 V76.51 Office Visit 03/18/2013 9:30a Main Office Hernando Marcelino M.D. 75156 530.81 784.49 278.02 Office Visit 12/11/2012 10:00a Main Office Hernando Marcelino M.D. 14302 780.79 780.50 530.81 296.32 625.4 464.00 Office Visit 10/05/2012 11:30a Main Office Hernando Marcelino M.D. 67046 780.79 780.50 296.32 530.81 Office Visit 07/20/2012 9:15a Main Office Hernando Marcelino M.D. 91893 465.9 780.79 780.50 783.1 296.32 530.81 Office Visit 06/15/2012 10:15a Main Office Hernando Marcelino M.D. 63598 780.79 780.50 296.32 783.1 Office Visit 04/17/2012 9:15a Main Office Hernando Marcelino M.D. 97964 389.9 780.79 780.50 296.32 493.10 V76.2 V70.0 V76.10 V72.31 625.1 Office Visit 03/27/2012 1:30p Main Office Hernando Marcelino M.D. 08965 780.79 296.32 780.50 Office Visit 01/31/2012 10:15a Main Office Hernando Marcelino M.D. 92283 493.10 780.79 296.32 780.50 Office Visit 12/20/2011 9:05a Main Office Hernando Marcelino M.D. 32412 296.32 305.1 Office Visit 11/14/2011 10:00a Main Office Hernando Marcelino M.D. 96793 296.32 461.0 780.50 305.1 Office Visit 10/25/2011 2:30p Main Office Hernando Marcelino M.D. 24316 296.32 461.0 Office Visit 09/27/2011 10:00a Main Office Hernando Marcelino M.D. 73893 465.9 790.21 278.02 493.10 296.32 Office Visit 08/16/2011 3:45p Main Office Hernando Marcelino M.D. 28133 493.10 496 V77.91 278.02 v04.81 v07.2 Office Visit 04/11/2011 9:05a Main Office Hernando Marcelino M.D. 98038 V76.2 V76.10 V72.31 V77.91 493.10 Office Visit 04/06/2011 10:15a Main Office Pancho Romero M.D. 34705 496 Office Visit 03/21/2011 3:25p Main Office Hernando Marcelino M.D. 42707 616.10 V69.2 623.5 625.9 Office Visit 10/26/2010 10:00a Main Office Hernando Marcelino M.D. 88137 493.10 616.10 496 530.81 305.1 V04.81 V06.1 V07.2 Office Visit 09/18/2010 4:45p Main Office Hernando Marcelino M.D. 30119 616.10 788.1 623.5 Office Visit 04/13/2010 3:45p Main Office Hernando Marcelino M.D. 13303 493.10 477.8 372.71 Office Visit 02/16/2010 11:30a Main Office Hernando Marcelino M.D. 91798 477.8 372.71 478.19 Office Visit 02/01/2010 10:15a Main Office Hernando Marcelino M.D. 47826 493.10 477.8 530.81 305.1 Office Visit 12/20/2009 1:45p Main Office Pancho Romero M.D. 03643 493.10 465.9 305.1 V04.81 V07.2 Office Visit 05/12/2009 9:05a Main Office Hernando Marcelino M.D. 94686 493.10 530.81 305.1 Office Visit 03/24/2009 4:45p Main Office Pancho Romero M.D. 96109 465.9 784.1 493.10 305.1 Office Visit 07/18/2008 4:30p Main Office Hernando Marcelino M.D. 38908 466.0 496 305.1 Office Visit 02/13/2008 11:30a Main Office Pancho Romero M.D. 35465 465.9 784.1 530.81 496 305.1 Office Visit 07/23/2007 4:30p Main Office Hernando Marcelino M.D. 79871 844.9 305.1 278.00 Office Visit 07/09/2007 4:30p Main Office Hernando Marcelino M.D. 14897 844.9 Office Visit 07/02/2007 1:45p Main Office Hernando Marcelino M.D. 56128 844.9 Office Visit 02/12/2007 1:45p Main Office Hernando Marcelino M.D. 43588 786.50 496 305.1 Office Visit 01/30/2007 3:00p Main Office missy 92375 496 305.1 461.0 Office Visit 12/11/2006 3:15p Main Office Hernando Marcelino M.D. 67587 496 305.1 530.81 Office Visit 10/22/2006 1:45p Main Office Pancho Romero M.D. 27930 461.0 530.81 305.1 496 Office Visit 10/10/2006 3:15p Main Office Hernando Marcelino M.D. 10253 496 530.81 784.49 305.1 V70.0 V72.31 626.6 V04.81 Office Visit 12/13/2005 2:15p Main Office missy 07445 784.0 521.02 Office Visit 12/12/2005 2:20p Main Office Deanna Muse, N.P. 91436 784.0 521.02 Office Visit 12/03/2005 3:10p Main Office Deanna Muse, N.P. 36315 780.79 784.49 530.81 784.0 Office Visit 11/18/2005 3:45p Main Office Hernando Marcelino M.D. 08342 883.0 883.0 Office Visit 11/02/2005 10:00a Main Office Pancho Romero M.D. 41112 530.81 784.49 305.1 Office Visit 08/30/2005 3:25p Main Office Hernando Marcelino M.D. 26452 466.0 305.1 Office Visit 03/05/2005 4:00p Main Office Hernando Marcelino M.D. 73918 311 496 305.1 Office Visit 02/26/2005 4:10p Main Office Deanna Muse, N.P. 60151 486 311 305.1 272.0 Office Visit 01/24/2005 3:20p Main Office Deanna Muse, N.P. 02124 786.2 272.0 305.1 382.00 788.69 Office Visit 08/30/2004 1:20p Main Office Deanna Muse, N.P. 24065 461.0 272.0 305.1 530.81 611.79 Office Visit 05/24/2004 2:00p Main Office Deanna Muse, N.P. 23351 305.1 530.81 626.8 Office Visit 04/19/2004 3:20p Main Office Deanna Muse, N.P. 42097 995.3 305.1 530.81 626.8 Office Visit 03/27/2004 9:40a Main Office Deanna Muse, N.P. 79451 626.8 305.1 Office Visit 03/22/2004 2:40p Main Office Deanna Muse, N.P. 62118 626.0 789.00 V72.4 Office Visit 12/27/2003 9:00a Main Office Deanna Muse, N.P. 76717 530.81 272.0 305.1 309.0 Office Visit 06/23/2003 9:15a Main Office Hernando Marcelino M.D. 39047 530.81 305.1 Office Visit 06/09/2003 2:45p Main Office Hernando Marcelino M.D. 72259 793.80 706.2 Office Visit 05/24/2003 4:00p Main Office Deanna Muse, N.P. 83183 272.0 464.00 305.1 706.2 Office Visit 05/12/2003 3:00p Main Office Deanna Muse, N.P. 15450 272.0 784.49 305.1 Plan of Care No Information Available
--- OUTSIDE RECORDS SUMMARY | 2018-06-25 07:35 | XMS REPORT ---
:1970 External Reference #:[id number] Author Organization [facility] Address [address] [place] [address] Phone [phone] Care Team Providers Name Role Phone Danny Gabriel D.O. 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 Active Onset: 04/16/2018 Combined form of senile cataract Jose D Corcoran M.D. Active Onset: 05/12/2018 Presence of intraocular lens Jose D Corcoran M.D. 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 ETOH Use Denies alcohol use Recreational Drug Use Denies Drug Use Smoking Patient is a former smoker quit 05/01/18 Daily Caffeine Consumes on average 2 pots of regular coffee per day Allergies, Adverse Reactions, Alerts Date Description Reaction Status Severity Comments 04/16/2018 Morphine active 04/16/2018 Codeine active 04/16/2018 Amoxicillin active 04/16/2018 Cephalexin active Medications Medication Date Status Form Strength Qnty SIG Indications Ordering Provider Bupropion HCL / Active Tablets 75mg Unknown 0000 Famotidine / Active Tablets 40mg Unknown 0000 Buspirone HCL / Active Tablets 15mg Unknown 0000 Albuterol / Active Nebulizer (2.5mg/3ML Unknown Sulfate 0000 ) 0.083% Dulera / Active Aerosol 100-5mcg/A Unknown 0000 ct Fluticasone / Active Suspension 50mcg/Act Unknown Propionate 0000 Norethindrone / Active Tablets 0.35mg Unknown 0000 Artificial / Active Solution 0.1-0.3% as Jose D Tears 0000 needed [place], (Every M.D. 2-3 Hours) Ciprofloxacin 05/06/ Hx Solution 0.3% 10unit One drop Jose D HCL 2017 - [facility], 06/03/ right M.D. 2018 eye three times per day Ketorolac 05/06/ Hx Solution 0.5% 10ml One drop Jose D Tromethamine 2018 - right [facility], 06/02/ eye M.D. 2018 three times per day, one drop left eye twice per day Prednisolone 05/06/ Hx Suspension 1% 15ml One drop Jose D Acetate 2018 - right [facility], 06/02/ eye M.D. 2018 three times per day, one drop left eye twice per day Results Description No Information Procedures Date CPT Code Description Status 05/18/2018 32456 Extracapsular Cataract Extraction W/Intraocular Lens Completed 05/11/2018 71563 Extracapsular Cataract Extraction W/Intraocular Lens Completed 05/06/2018 67049 Ophthalmic Biometry Completed 05/06/2018 93417 Ophthalmic Biometry Completed 04/16/2018 21443 New Patient Comprehensive Exam Completed Encounters Type Date Location Provider CPT E/M Dx Office Visit 05/06/2018 12:00p Campbell Rivas MD, Jose D Corcoran, 18931 H25.12 Farooq H25.11 Plan of Care 06/04/2018 - Jose D Corcoran M.D.Z96.1 Presence of intraocular lensComments: Smoking can increase the risk of developing or worsening any eye related disease , as well as affect your overall health. If you are a smoker, we strongly recommend that you quit.If you are not a smoker, we strongly recommend that you do not start. Your lens implant looks stable in both eyes at this time. You should be done, or almost done with your drops at this time according to your surgical calendar. I have given you a prescription for glasses. If you have any questions, please feel free to call our office at .Follow up: 1 Year Follow Up DFE You can expect to have your eyes dilated at your next visit. If Dr. Corcoran orders any additional testing, it may require extra time. We recommend that you bring sunglasses, as dilation drops often make you light sensitive until they wear off. We always recommend you bring someone to drive you home if you are uncomfortable driving with your eyes dilated. If you have any questions before your next visit, feel free to call our office at [phone].
[2018-06-25 07:42] VITALS: BP 144/66
--- NOTE | 2018-06-25 07:53 | ED ---
Head Injury - HPI Summary HPI Summary: This patient is a 48-year-old female who presents to the urgent care with a chief complaint of having headache, dizziness, nausea vomiting right after she had a head contusion last night. She reports that she hit her head against the trunk of a car and since then the patient is having the above symptoms. Patient is able to ambulate with out any ataxia or dysfunction, and she is alert and oriented 3. She denies any blurred vision, neck pain, denies any loss of consciousness. She has no other complaints. - History Of Current Complaint Chief Complaint: UCHeadInjury Stated Complaint: HEAD INJURY Time Seen by Provider: 06/25/18 07:29 Hx Last Menstrual Period: 06/01/18 Pain Intensity: 5 - Allergies/Home Medications Allergies/Adverse Reactions: Allergies Allergy/AdvReac Type Severity Reaction Status Date / Time codeine Allergy Severe See Comment Verified 06/25/18 07:34 morphine Allergy Severe See Comment Verified 06/25/18 07:34 Penicillins Allergy Swelling Verified 06/25/18 07:34 Of Face,Lips,& Throat PMH/Surg Hx/FS Hx/Imm Hx Previously Healthy: No - she has history of GERD and COPD. Endocrine/Hematology History: Reports: Hx Anemia - tries to eat better Denies: Hx Anticoagulant Therapy, Hx Diabetes, Hx Thyroid Disease Cardiovascular History: Denies: Hx Congestive Heart Failure, Hx Deep Vein Thrombosis, Hx Hypertension , Hx Myocardial Infarction, Hx Pacemaker/ICD, Hx Valvular Heart Disease, Other Cardiovascular Problems/Disorders Respiratory History: Reports: Hx Asthma - on medications, Hx Chronic Obstructive Pulmonary Disease (COPD), Other Respiratory Problems/Disorders - Pneumonia 07/2017, Prone to respiratory and sinus infections Denies: Hx Lung Cancer, Hx Pneumonia, Hx Pulmonary Embolism GI History: Reports: Hx Gastroesophageal Reflux Disease - on famotidine, Hx Hiatal Hernia, Hx Irritable Bowel - Spastic Colon, Other GI Disorders - valve at top of stomach doesn't close, history of esophagitis Denies: Hx Gall Bladder Disease, Hx Gastrointestinal Bleed, Hx Ulcer, Hx Urosepsis History: Reports: Other Problems/Disorders - Frequent urination,usually urinates every 45 minutes,drinks alot of fluid Denies: Hx Kidney Stones, Hx Renal Disease Musculoskeletal History: Reports: Hx Arthritis - Through out body, per pt, Hx Bursitis - shoulders, history of, Hx Tendonitis - arms and shoulders, history of , Other Musculoskeletal History - Dr Recinos realigns her spine every so often Sensory History: Reports: Hx Cataracts - Bilateral, Hx Contacts or Glasses - Glasses Denies: Hx Glaucoma, Hx Hearing Aid Opthamlomology History: Reports: Hx Cataracts - Bilateral, Hx Contacts or Glasses - Glasses Denies: Hx Glaucoma Neurological History: Reports: Hx Headaches - has occasionally, Other Neuro Impairments/Disorders - History of concussions x 2 Denies: Hx Dementia, Hx Migraine, Hx Seizures, Hx Transient Ischemic Attacks (TIA) Psychiatric History: Reports: Hx Anxiety - on medication, Hx Depression - on medication - Cancer History Hx Chemotherapy: No Hx Radiation Therapy: No - Surgical History Surgery Procedure, Year, and Place: x 2. biopsy x 3: left breast, left shoulder, throat Hx Anesthesia Reactions: Yes - Epidural for C section did not work for 2nd c section, vomited during 1st Infectious Disease History: No Infectious Disease History: Denies: Hx Clostridium Difficile, Hx Hepatitis, Hx Human Immunodeficiency Virus (HIV), Hx of Known/Suspected MRSA, Hx Shingles, Hx Tuberculosis, Hx Known/ Suspected VRE, Hx Known/Suspected VRSA, History Other Infectious Disease, Traveled Outside the [place] in Last 30 Days - Family History Known Family History: Positive: Diabetes - Social History Alcohol Use: None Substance Use Type: Reports: None Smoking Status (MU): Heavy Every Day Tobacco Smoker Type: Cigarettes Amount Used/How Often: 1/2 PPD Length of Time of Smoking/Using Tobacco: 30+ YEARS Have You Smoked in the Last Year: Yes Review of Systems Constitutional: Negative Eyes: Negative ENT: Negative Cardiovascular: Negative Respiratory: Negative Gastrointestinal: Negative Genitourinary: Negative Musculoskeletal: Negative Skin: Negative Positive: Headache Psychological: Normal All Other Systems Reviewed And Are Negative: Yes Physical Exam - Summary Physical Exam Summary: VITAL SIGNS: Reviewed. GENERAL: Patient is obesity female who is lying comfortable in the stretcher. Patient is not in any acute respiratory distress. HEAD AND FACE: No signs of trauma. No ecchymosis, hematomas or skull depressions. No sinus tenderness. EYES: PERRLA, EOMI x 2, No injected conjunctiva, no nystagmus. No photophobia. EARS: Hearing grossly intact. Ear canals and tympanic membranes are within normal limits. MOUTH: Oropharynx within normal limits. NECK: Supple, trachea is midline, no adenopathy, no JVD, no carotid bruit, no c- spine tenderness, neck with full ROM. No meningeal signs, no Kernig's or brudzinskis signs. CHEST: Symmetric, no tenderness at palpation LUNGS: Clear to auscultation bilaterally. No wheezing or crackles. CVS: Regular rate and rhythm, S1 and S2 present, no murmurs or gallops appreciated. ABDOMEN: Soft, non-tender. No signs of distention. No rebound no guarding, and no masses palpated. Bowel sounds are normal. EXTREMITIES: FROM in all major joints, no edema, no cyanosis or clubbing. NEURO: Alert and oriented x 3. No acute neurological deficits. Speech is normal and follows commands. GCS score: 15 SKIN: Dry and warm Triage Information Reviewed: Yes Vital Signs On Initial Exam: Initial Vitals Temp Pulse Resp BP Pulse Ox 98.3 F 70 18 144/66 97 06/25/18 07:35 06/25/18 07:35 06/25/18 07:35 06/25/18 07:35 06/25/18 07:35 Vital Signs Reviewed: Yes Diagnostics - Vital Signs Vital Signs Temp Pulse Resp BP Pulse Ox 06/25/18 07:35 98.3 F 70 18 144/66 97 - Laboratory Lab Statement: Any lab studies that have been ordered have been reviewed, and results considered in the medical decision making process. - CT Head CT CT Interpretation: No Acute Changes CT Interpretation Completed By: Radiologist - No acute intracranial pathology Head Injury Course/Dx Assessment/Plan: Patient is a 48-year-old female with a chief complaint of head contusion. Head CT impression: No acute intracranial pathology. Patient was discharged home with follow-up with primary care physician. She was instructed to return to the urgent care or go to the emergency department if patient develops any weakness, lethargy, nausea vomiting or any other symptom. The patient understands and agrees. All her concerns were addressed and she has no further questions. - Diagnoses Differential Diagnosis/HQI/PQRI: Concussion Without LOC, Contusion, Intracranial Bleed Provider Diagnoses: Head contusion Discharge - Sign-Out/Discharge Documenting (check all that apply): Patient Departure All imaging exams completed and their final reports reviewed: Yes - Discharge Plan Condition: Stable Disposition: HOME Patient Education Materials: Contusion in Adults (ED) Referrals: Danny Gabriel DO [Primary Care Provider] - Additional Instructions: Take Acetaminophen or ibuprofen for pain or fever Increase your fluid intake Return to the UC or go to the emergency department if symptoms worsen Follow-up with primary care physician in next 2-3 days - Billing Disposition and Condition Condition: STABLE Disposition: Home
--- NOTE | 2018-06-25 08:16 | RAD ---
HISTORY: Head contusion COMPARISONS: None TECHNIQUE: Multiple contiguous axial CT scans were obtained of the head without intravenous contrast. FINDINGS: HEMORRHAGE/INFARCT: There is no hemorrhage or acute infarct. MASSES/SHIFT: There is no mass or shift. EXTRA-AXIAL SPACES: There are no extra-axial fluid collections. SULCI AND VENTRICLES: The sulci and ventricles are normal in size and position for the patient's stated age. CEREBRUM: There are no focal parenchymal abnormalities. BRAINSTEM: There are no focal parenchymal abnormalities. CEREBELLUM: There are no focal parenchymal abnormalities. VESSELS: The vessels are grossly normal. PARANASAL SINUSES: The paranasal sinuses are clear. ORBITS: The orbits are unremarkable. BONES AND SOFT TISSUE: No bone or soft tissue abnormalities are noted. OTHER: None IMPRESSION: NO ACUTE INTRACRANIAL PATHOLOGY.
== END 2018-06-25 08:30 | disposition home or self-care (01) ==
LOC: UCEAST 07:27
DX: S00.93XA Contusion of unspecified part of head, initial encounter (principal); W22.8XXA Striking against or struck by other objects, initial encounter; Y93.9 Activity, unspecified; Y92.9 Unspecified place or not applicable; R42 Dizziness and giddiness; R11.2 Nausea with vomiting, unspecified; J44.9 Chronic obstructive pulmonary disease, unspecified; K21.9 Gastro-esophageal reflux disease without esophagitis; Z88.5 Allergy status to narcotic agent; Z88.0 Allergy status to penicillin; F17.210 Nicotine dependence, cigarettes, uncomplicated
CPT/HCPCS: 70450; 99211; G0463

== ENCOUNTER → 2018-10-09 08:23 | Day surgery (SDC) | payer OTHER ==
[~2018-10-09 08:23] MED LIST changes: -Acetaminophen TAB* 325 MG PO PRN; +EPHEDrine (Pressors)* 50 MG/ML VIAL ONE; +Lactated Ringers 1000 ML Bag* 1,000 ML IV SCH; +Lidocaine 2% PF * 5 ML VIAL ONE; +Naloxone* 0.4 MG/ML 1 ML VIAL IV PRN; +Propofol* 10 MG/ML 20 ML BTL ONE
[2018-10-09 11:21] VITALS: BP 125/58
--- NOTE | 2018-10-09 22:10 | PRO ---
CC: Dr. Danny Gabriel * EGD AND COLONOSCOPY REPORT: DATE OF PROCEDURE: 10/09/18 - ENDO PRIMARY CARE PHYSICIAN: Dr. Danny Gabriel. INDICATION FOR PROCEDURE: Diarrhea and reflux along with dysphagia. PROCEDURE PERFORMED: Complete esophagogastroduodenoscopy with biopsies and complete colonoscopy to the cecum with biopsies. MEDICATIONS GIVEN: Please see Anesthesia record. DESCRIPTION OF PROCEDURE: After the EGD and colonoscopy procedure, including the risks, benefits, and alternatives, with the risks not limited to perforation , surgery, missed lesions, and/or were explained to the patient, written informed consent was then obtained. IV medication was given by the anesthesia service and a bite-block was placed between the teeth. The adult Olympus gastroscope was then inserted into the oropharynx, into the tubular esophagus. At 30 cm, a fungating mass roughly 1 cm arising from the esophageal wall, circular in nature was identified. This was biopsied. It was not obstructing in nature. Advancement to the lower part of the esophagus revealed an intact GE junction at 40 cm without irregularity. The scope was advanced through the lower esophageal sphincter into the antrum. There was mild pangastritis. This was biopsied for CLOtesting. On retroflexion, no significant hiatal hernia was visualized. The scope was advanced through the pylorus into the duodenal bulb, C-loop, and distal duodenum, which were normal in appearance. Given her diarrhea, biopsies were taken for celiac disease. The scope was then removed from the patient. She tolerated the procedure well. She was given additional IV sedation medication by the anesthesia service. A rectal exam was performed. The rectal exam was unremarkable. The adult Olympus colonoscope was inserted into the patient's rectum and advanced very carefully through the entirety of the colon, into the cecum. The colon was quite redundant with multiple loops requiring nursing assistance and pressure to facilitate intubation. Eventually, we were successful in reaching the cecum. The preparation was poor; however, I was able to wash it to fair to exclude large lesions. I did take biopsies throughout the colon for microscopic colitis. There were no gross polyps or lesions identified. On retroflexion, views were normal. The withdrawal time was 8 minutes. The scope was then removed from the patient. She tolerated the procedures well. She returned to the recovery room in stable condition. IMPRESSION: 1. Complete esophagogastroduodenoscopy with biopsies. 2. Esophageal mass at 30 cm, biopsied as above. 3. Mild pangastritis, biopsied. 4. Diarrhea, normal-appearing duodenum, biopsied for celiac disease. 5. Colonoscopy to cecum. 6. Poor prep, was able to be washed to fair. 7. Biopsies taken for microscopic colitis. 8. Otherwise unremarkable colonoscopy with exception of redundant colon. RECOMMENDATIONS: Await result of this biopsy of the esophageal mass. This may have been contributing to her dysphagia; however, it is nonobstructing. Her next colonoscopy should be in 5 years given the preparation was not good, but I am able to exclude larger lesions. In terms of her diarrhea, given the amount of stool content that was left today, I suspect that overflow was likely the cause of her diarrhea. She will begin fiber therapy and report to me how she is doing. [id number] #: [id number] MTDD
== END | disposition home or self-care (01) ==
LOC: ENDO 08:23
PROVIDERS: ATTEND Internal Medicine Gastroenterology
DX: K29.70 Gastritis, unspecified, without bleeding (principal); D13.0 Benign neoplasm of esophagus; K21.9 Gastro-esophageal reflux disease without esophagitis; R19.7 Diarrhea, unspecified; K63.89 Other specified diseases of intestine; J44.9 Chronic obstructive pulmonary disease, unspecified; Z87.891 Personal history of nicotine dependence; Z88.0 Allergy status to penicillin; Z88.5 Allergy status to narcotic agent; Z79.899 Other long term (current) drug therapy; R13.10 Dysphagia, unspecified
CPT/HCPCS: 81025; 87077; 88305; 88342; J2704

== ENCOUNTER → 2019-02-05 06:23 | Day surgery (SDC) | payer OTHER ==
[~2019-02-05 06:23] MED LIST changes: -Buffered Lidocaine 0.9% SYRIN* 5 ML/SYR SYRINGE INTRADERM ONE; +Buffered Lidocaine 1% SYRIN* 1 ML/SYRINGE INTRADERM ONE; -EPHEDrine (Pressors)* 50 MG/ML VIAL ONE; +Midazolam* 1 MG/ML 5 ML VIAL (5 MG) ONE; +Ondansetron INJ* 2 MG/ML VIAL IV PRN; +Ondansetron INJ* 2 MG/ML VIAL ONE; +fentaNYL* 50 MCG/ML 2 ML VIAL (100 MCG VIAL) ONE
[2019-02-05 09:41] VITALS: BP 137/85
--- NOTE | 2019-02-06 00:39 | PRO ---
CC: Danny Gabriel DO * ESOPHAGOGASTRODUODENOSCOPY REPORT: DATE OF PROCEDURE: 02/05/19 - [facility] PRIMARY CARE PHYSICIAN: Danny Gabriel DO INDICATION FOR PROCEDURE: Esophageal lesion, papilloma and GERD. MEDICATIONS GIVEN: Please see anesthesia record. DESCRIPTION OF PROCEDURE: After the EGD procedure including the risks, benefits and alternatives with the risks not limited to perforation, surgery, missed lesions, and/or were explained to the patient, written informed consent was obtained. IV medication was given and a bite block was placed between the teeth. The adult Olympus gastroscope was then inserted into the patient's oropharynx. At 30 cm, the papilloma residual was identified. This was removed entirely and the area surrounding with biopsy forceps with great effect. The scope was then continued to the distal esophagus where she had mild erosive esophagitis INDIGO in nature. A small biopsy of this area was taken as well. The scope was advanced through the lower esophageal sphincter into the stomach. Views on antegrade and retroflexion were completely normal. The scope was then advanced through the widely patent pylorus into the duodenal bulb , C-loop, and distal duodenum and these were normal in appearance. The scope was then removed from the patient. She tolerated the procedure well. She returned to the recovery room in stable condition. IMPRESSION: 1. Complete esophagogastroduodenoscopy with biopsies. 2. Successful papilloma removal at 30 cm. 3. Mild INDIGO erosive esophagitis. RECOMMENDATIONS: Restart PPI. She had tried famotidine but this does not appear to be controlling her erosive reflux. In addition, we will plan a 1- year followup to evaluate the papilloma site. [id number]/[facility] #: [id number] [facility]
== END | disposition home or self-care (01) ==
LOC: OR 06:23
PROVIDERS: ATTEND Internal Medicine Gastroenterology
DX: D13.0 Benign neoplasm of esophagus (principal); K22.10 Ulcer of esophagus without bleeding; K21.9 Gastro-esophageal reflux disease without esophagitis
CPT/HCPCS: 81025; 88305; J2250; J2405; J2704; J3010

== ENCOUNTER 2019-04-18 14:53 | Emergency (ER) | payer OTHER ==
[2019-04-18 15:03] VITALS: BP 142/63
--- NOTE | 2019-04-18 15:25 | UC ---
Skin Complaint HPI - HPI Summary HPI Summary: Yesterday while driving felt a bite at her L ankle and then intesne itching. Today woke up with L ankle swollen from itching. benadryl did not help. she is not sure what bit her. has cats at home but they are treated for tick/flea. she bought car 1 mo. ago. - History of Current Complaint Chief Complaint: UCSkin Time Seen by Provider: 04/18/19 15:04 Stated Complaint: INSECT BITE Hx Obtained From: Patient Hx Last Menstrual Period: 06/01/18 Pain Intensity: 5 Pain Scale Used: 0-10 Numeric Location: Foot (Left) Aggravating Factor(s): Nothing Alleviating Factor(s): Nothing - Allergy/Home Medications Allergies/Adverse Reactions: Allergies Allergy/AdvReac Type Severity Reaction Status Date / Time codeine Allergy Severe See Comment Verified 04/18/19 15:03 morphine Allergy Severe See Comment Verified 04/18/19 15:03 Penicillins Allergy Severe Swelling Verified 04/18/19 15:03 Of Face,Lips,& Throat cephalexin Allergy Unknown Verified 04/18/19 15:03 Reaction Details PMH/Surg Hx/FS Hx/Imm Hx Previously Healthy: Yes Respiratory History: Asthma Other History Of: Negative For: HIV, Hepatitis B, Hepatitis C, Anticoagulant Therapy - Surgical History Surgical History: Yes Surgery Procedure, Year, and Place: x 2. Biopsy x 3: Left breast, Left shoulder, Throat. Colonoscopy/Endoscopy/Biopsy. Bilateral Cataract Extraction - Family History Known Family History: Positive: Diabetes - Social History Alcohol Use: None Substance Use Type: None Smoking Status (MU): Heavy Every Day Tobacco Smoker Type: Cigarettes Amount Used/How Often: 1/2 PPD for 40 years Length of Time of Smoking/Using Tobacco: 30+ YEARS Have You Smoked in the Last Year: Yes When Did the Patient Quit Smoking/Using Tobacco: 04/30/18 last cigarette Household Exposure Type: Cigarettes - Immunization History Most Recent Influenza Vaccination: season Most Recent Tetanus Shot: utd Review of Systems All Other Systems Reviewed And Are Negative: Yes Constitutional: Negative: Fever, Chills, Fatigue Skin: Positive: Rash Musculoskeletal: Positive: Arthralgia - L ankle, Edema - L ankle. Negative: Myalgia Physical Exam Triage Information Reviewed: Yes Appearance: Well-Appearing Vital Signs: Initial Vital Signs Temp 98.8 F 04/18/19 14:55 Pulse 91 04/18/19 14:55 Resp 18 04/18/19 14:55 BP 142/63 04/18/19 14:55 Pulse Ox 98 04/18/19 14:55 Vital Signs Reviewed: Yes Musculoskeletal: Positive: Edema @ - L ankle near bug bites, boggy, not erythematous. Neurological: Positive: Alert Skin: Positive: Rashes - scattered ? bug bites at L ankle. approx 5 Course/Dx - Course Course Of Treatment: Unclear etiology but has what looks like bug bites at L ankle with an inflammatory reaction. Can take benadryl for itching but will give short course steroids to help w/ inflammation. Return if not improving . no signs of cellulitis. vitals good. - Differential Diagnoses - Skin Complaint Differential Diagnoses: Drug Rash, Foreign Body, Poison [place], Scabies, Tick Born Illness - Diagnoses Provider Diagnosis: Bug bite Discharge - Sign-Out/Discharge Documenting (check all that apply): Patient Departure All imaging exams completed and their final reports reviewed: No Studies - Discharge Plan Condition: Good Disposition: HOME Prescriptions: predniSONE TAB* [Deltasone 10 MG TAB*] 10 mg PO DAILY 6 Days #9 tab Patient Education Materials: Bed Bugs (ED) Referrals: Danny Gabriel DO [Primary Care Provider] - Additional Instructions: consider trying diotomaceous earth. - Billing Disposition and Condition Condition: GOOD Disposition: Home - Attestation Statements Provider Attestation: I was available for consult. This patient was seen by the JORDAN. The patient was not presented to , seen by or examined by dc -Brittney Bernstein MD
== END 2019-04-18 15:35 | disposition home or self-care (01) ==
LOC: UCEAST 14:53
DX: S90.562A Insect bite (nonvenomous), left ankle, initial encounter (principal); W57.XXXA Bitten or stung by nonvenomous insect and other nonvenomous arthropods, initial encounter; Y92.9 Unspecified place or not applicable; F17.210 Nicotine dependence, cigarettes, uncomplicated; Z88.5 Allergy status to narcotic agent; Z88.0 Allergy status to penicillin
CPT/HCPCS: 99212; G0463

== ENCOUNTER 2019-08-15 10:10 | Emergency (ER) | payer OTHER ==
--- OUTSIDE RECORDS SUMMARY | 2019-08-15 10:17 | XMS REPORT | Continuity of Care Document ---
:1970 External Reference #:[id number] Author Name Danny Gabriel D.O. Address [address] [place] [address] Care Team Providers Name Role Phone [facility] - Care Team Information Microsoft Bi Consultant [phone] Gastroenterology Billy Knowles MD - Supervisor Baking Care Team Information [employer] Bi Consultant [phone] [facility] - Care Team Information Microsoft Bi Consultant [phone] Obstetrics & Gynecology Problems Active Problems Provider Date Chronic obstructive lung disease Hernando Marcelino M.D. Onset: 03/05/2005 Gastroesophageal reflux disease Hernando Marcelino M.D. Onset: 10/10/2006 Difficulty speaking Hernando Marcelino M.D. Onset: 10/10/2006 Obesity Hernando Marcelino M.D. Onset: 07/23/2007 Edema Danny Gabriel D.O. 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 Onset: 03/30/2018 Social History Type Date Description Comments Sex Unknown Tobacco Use Start: Unknown End: Former Cigarette Smoker quit 10 14 2012 then Unknown restarted in summer Cigarette Use 08/15/2014 Pack Years - 28 started age 5 Tobacco Use Reviewed: 03/25/18 current cigarette 1/2 ppd planned quit smoker date 04/19/18 Smoking Status Reviewed: 08/09/19 current cigarette 1/2 ppd planned quit smoker date 04/19/18 ETOH Use Denies alcohol use Recreational Drug Use Former Drug User has used illegal drugs in the past Tobacco Use Start: Unknown Patient is a current but is try to quit smoker, smokes every now and is down to 2 day cigarettes a day Allergies, Adverse Reactions, Alerts Active Allergies Reaction Severity Comments Date Amoxicillin 06/08/2003 Codeine causes GI upset 06/08/2003 Cephalexin 06/08/2003 Morphine 12/20/2009 Medications Active Medications SIG Qnty Indications Ordering Date Provider CBD Oil prn Unknown 06/01/2019 CBD Cream Unknown 06/01/2019 Omeprazole one po daily Unknown 02/05/[address] Rivers Respiclick Inhale 1 puff by 3units J45.20 Danny Gabriel, 2017 232/14 mouth 2 times per D.O. 232-14mcg/Act day for asthma Aerosol Albuterol Sulfate use 3-4 times a 75ml Pancho Romero, 07/07/2017 day to help M.D. (2.5mg/3ML) 0.083% breathing Nebulizer Mask And Tubing For Use with nebulizer 1units J18.9 Pancho Romero, 07/07 Nebulizer as directed M.D. Vitamin D3 Maximum 1 by mouth every 90caps Danny Gabriel, 08/16/2016 Strength day D.O. 5000Unit Capsules Vitamin B Complex-C 1 by mouth twice a 180caps Danny Gabriel, 08/16/2016 day D.O. Capsules Buspirone HCL Take 1 Tablet By 180tabs N94.3 Danny Gabriel, 08/14/2016 15mg Mouth Twice Daily D.O. Tablets F33.1 Proair HFA inhale 2 puffs by 8.5units J44.0 Danny Gabriel, 04/19/2013 108(90Base) mouth every 4 hours D.O. mcg/Act Aerosol if needed wheezing Decongestant/Antihista as directed prn OTC Unknown mine allergies Tablets Medications Administered in Office Medication SIG Qnty Indications Ordering Provider Date H1N1 Swine Flu Vaccine Pancho Romero M.D. 12/20/2009 Injection Immunizations CPT Code Status Date Vaccine Lot # [id number] Given 08/09/2019 Influenza Virus Vaccine, Quadrivalent, Split, [id number] Preservative Free 16026 Given 08/15/2014 Influenza Virus Vaccine, Split, Preserv Free, [id number] Intradermal Use 57978 Given 08/16/2011 Flu, Split Virus 3Yrs [id number] 10422 Given 10/26/2010 Adacel or Boostrix, TDaP [id number] 90147 Given 10/26/2010 Flu, Split Virus 3Yrs [id number] 92110 Given 02/09/2010 Pneumococcal Immunization [id number] 56541 Given 12/20/2009 Flu Vaccine; Split Virus [facility] [id number] 52238 Given 10/10/2006 Flu, Split Virus 3Yrs 34315 Given 11/05/2002 Td Immunization 58529 Given 10/20/2000 Td Immunization 23810 Given 04/19/1982 Td Immunization 15147 Given 02/17/1973 Dtap Immunization (Tripedia) (Infanrix) 61228 Given 02/17/1973 Dtap Immunization (Tripedia) (Infanrix) 04342 Given 02/17/1973 Poliomyelitis Immunization 63912 Given 05/20/1971 Poliomyelitis Immunization 25196 Given 03/20/1971 Poliomyelitis Immunization 85021 Given 03/20/1971 Rubella Immunization 60912 Given 03/22/1969 Measles Immunization 23740 Given 03/20/1969 Dtap Immunization (Tripedia) (Infanrix) 96009 Given 1970 Dtap Immunization (Tripedia) (Infanrix) 68409 Given 1970 Dtap Immunization (Tripedia) (Infanrix) 59123 Given 1970 Dtap Immunization (Tripedia) (Infanrix) Vital Signs Date Vital Result Comment 08/09/2019 1:00pm BP Systolic 122 mmHg BP Diastolic 78 mmHg Weight 253.00 lb w/shoes 06/02/2019 12:56pm BP Systolic 132 mmHg BP Diastolic 80 mmHg Weight 251.00 lb Results Test Acquired Date Facility Test Result H/L Range Note Laboratory test 06/11/2019 [facility] Cytology SEE RESULT 1 finding [phone] BELOW CBC Auto Diff 06/02/2019 [facility] White Blood 11.3 High 3.5-10.8 [phone] Count 10^3/uL Red Blood Count 5.24 10^6/uL High 3.70-4.87 Hemoglobin 14.3 g/dL Normal 12.0-16.0 Hematocrit 44 % Normal 35-47 Mean Corpuscular Volume 83 fL Normal 80-97 Mean Corpuscular Hemoglobin 27 pg Normal 27-31 Mean Corpuscular HGB Conc 33 g/dL Normal 31-36 Red Cell Distribution Width 15 % Normal 10-15 Platelet Count 238 10^3/uL Normal 150-450 Mean Platelet Volume 10.2 fL Normal 7.4-10.4 Abs Neutrophils 7.1 10^3/uL Normal 1.5-7.7 Abs Lymphocytes 3.1 10^3/uL Normal 1.0-4.8 Abs Monocytes 0.7 10^3/uL Normal 0-0.8 Abs Eosinophils 0.3 10^3/uL Normal 0-0.6 Abs Basophils 0.1 10^3/uL Normal 0-0.2 Abs Nucleated RBC 0.0 10^3/uL Granulocyte % 62.8 % Lymphocyte % 27.6 % Monocyte % 5.8 % Eosinophil % 2.7 % Basophil % 1.1 % Nucleated Red Blood Cells % 0.0 Comp Metabolic Panel 06/02/2019 [facility] Sodium 138 mmol/L Normal 135-145 [phone] Potassium 4.1 mmol/L Normal 3.5-5.0 Chloride 104 mmol/L Normal 101-111 Co2 Carbon Dioxide 27 mmol/L Normal 22-32 Anion Gap 7 mmol/L Normal 2-11 Glucose 83 mg/dL Normal 70-100 Blood Urea Nitrogen 7 mg/dL Normal 6-24 Creatinine 0.82 mg/dL Normal 0.51-0.95 BUN/Creatinine Ratio 8.5 Normal 8-20 Calcium 9.8 mg/dL Normal 8.6-10.3 Total Protein 7.3 g/dL Normal 6.4-8.9 Albumin 4.3 g/dL Normal 3.2-5.2 Globulin 3.0 g/dL Normal 2-4 Albumin/Globulin Ratio 1.4 Normal 1-3 Total Bilirubin 0.30 mg/dL Normal 0.2-1.0 Alkaline Phosphatase 91 U/L Normal 34-104 Alt 14 U/L Normal 7-52 Ast 15 U/L Normal 13-39 Egfr Non- 73.5 >60 Egfr 88.9 >60 2 Laboratory test 06/02/2019 [facility] TSH (Thyroid 1.16 mcIU/mL Normal 0.34-5.60 finding [phone] Stim Horm) Magnesium 2.0 mg/dL Normal 1.9-2.7 Vitamin B12 189 pg/mL Normal 180-914 3 Vitamin D Total 25(Oh) 26.9 ng/mL Normal 20-50 4 Connective Tissue Panel 06/02/2019 [facility] Anti-Nuclear Antibody 0.3 U 5 [phone] Cyclic Citrullinated Peptide <15.6 U 6 Interpretation See Comment 7 Laboratory test 06/02/2019 [facility] Erythrocyte Sed 30 mm/Hr High 0 -29 finding [phone] Rate C Reactive Protein 12.02 mg/L High <8.01 1 SEE RESULT BELOW Name: KEELEY TEE Yaa : [address]: Gilma Rocha MD Acct: [id number] Unit: [id number] AGE: 49 Location: [facility] Re06/11/19 SEX: F Status: REG REF SPEC: [id number] TIN: [birth year][address] [facility] [address]: Gilma Rocha MD REQ: [id number] RECD: 06/11/194963 STATUS: CLIVE CURRIE DR: Danny Gabriel DO _ ORDERED: TP IMAGE ANALYS, HPV/Thin Prep COMMENTS: [id number] Negative for Intraepithelial lesion or Malignancy Date Time Test Result Flag (u) Normal Range 06/11/19 0953 HPV SURESH Negative Negative The high-risk HPV types detected by the assay include: 16, 18, 31, 33, 35, 39, 45, 51, 52, 56, 58, 59, 66, and 68. A. Ectocervical/Endocervical Specimen Adequacy: Satisfactory of evaluation Transformation zone component identified Patient Information: HPV: High risk HPV RNA testing regardless of pap results. Actual Specimen Date: 06/11/19 Last Menstrual Date: 06/05/19 Date of Last Specimen: 04/07/18 Signed by and Reported on: AILYN Rice (ASCP) 0914 This Pap test was evaluated with the assistance of the Mainstream [employer] Test Imaging System. Due to cytologic findings at the research and development scientist microscope, comprehensive manual rescreening by a Briquetter Operator may be required. The Pap Smear is [...] years. END OF REPORT DEPARTMENT OF PATHOLOGY, [address] [place] [address] Valeriano Villarreal M.D. Director [facility] # [id number] 2 Because ethnic data is not always readily [...] 15-29 5 Kidney failure <15 (or dialysis) 3 Normal Range 180 to 914 Indeterminate Range 145 to 180 Deficient Range <145 4 Total 25-Hydroxyvitamin D2 and D3 (25-OH-VitD) <10 ng/mL (severe deficiency) 10-19 ng/mL (mild to moderate deficiency) 20-50 ng/mL (optimum levels) 51-80 ng/mL (increased risk of hypercalciuria) >80 ng/mL (toxicity possible) 5 REFERENCE VALUE <=1.0 (Negative) 6 REFERENCE VALUE <20.0 (Negative) 7 Tests for antibodies to dsDNA and CARMENZA antigens are not performed automatically unless the JERMAINE result is > or = 3.0 U. Studies performed at [facility] indicate that positive JERMAINE results <3.0 U are rarely accompanied by positive second order tests. Test Performed by: [facility] [address] [place] [address] Procedures Date Code Description Status 08/09/2019 26046 Omt 7-8 Body Regions Completed 06/02/2019 97594 Omt 7-8 Body Regions Completed 03/12/2019 [id number] Mammogram Completed 03/01/2019 30831 Omt 7-8 Body Regions Completed 10/09/2018 [id number] Colonoscopy Completed Medical Devices Description No Information Available Encounters Type Date Location Provider Dx Diagnosis Office Visit 08/09/2019 Main Office Danny Gabriel, M54.81 Occipital neuralgia 12:55p D.O. M54.2 Cervicalgia J44.9 Chronic obstructive pulmonary disease, unspecified F17.210 Nicotine dependence, cigarettes, uncomplicated M99.00 Segmental and somatic dysfunction of head region M99.01 Segmental and somatic dysfunction of cervical region M99.08 Segmental and somatic dysfunction of rib cage M99.03 Segmental and somatic dysfunction of lumbar region M99.05 Segmental and somatic dysfunction of pelvic region M99.02 Segmental and somatic dysfunction of thoracic region M99.04 Segmental and somatic dysfunction of sacral region Z23 Encounter for immunization Office Visit 06/02/2019 12:55p Main Office Danny Gabriel, E55.9 Vitamin D D.O. deficiency, unspecified E66.01 Morbid (severe) obesity due to excess calories K21.0 Gastro-esophageal reflux disease with esophagitis M54.2 Cervicalgia M54.5 Low back pain M99.03 Segmental and somatic dysfunction of lumbar region M99.04 Segmental and somatic dysfunction of sacral region M99.05 Segmental and somatic dysfunction of pelvic region M99.02 Segmental and somatic dysfunction of thoracic region M99.08 Segmental and somatic dysfunction of rib cage M99.00 Segmental and somatic dysfunction of head region M99.01 Segmental and somatic dysfunction of cervical region J44.9 Chronic obstructive pulmonary disease, unspecified Office Visit 03/01/2019 11:30a Main Office Danny Gabriel M99.03 Segmental and D.O. somatic dysfunction of lumbar region M99.05 Segmental and somatic dysfunction of pelvic region M99.04 Segmental and somatic dysfunction of sacral region M99.02 Segmental and somatic dysfunction of thoracic region M99.08 Segmental and somatic dysfunction of rib cage M99.00 Segmental and somatic dysfunction of head region M99.01 Segmental and somatic dysfunction of cervical region M54.5 Low back pain M54.2 Cervicalgia E66.9 Obesity, unspecified J44.9 Chronic obstructive pulmonary disease, unspecified Z68.41 Body mass index (BMI) 40.0-44.9, adult Assessments Date Code Description Provider 08/09/2019 M54.81 Occipital neuralgia Danny Gabriel, D.O. 08/09/2019 M54.2 Cervicalgia SopDanny rico, D.O. 08/09/2019 J44.9 Chronic obstructive pulmonary disease, SopDanny rico, D.O. unspecified 08/09/2019 F17.210 Nicotine dependence, cigarettes, SopDanny rico, D.O. uncomplicated 08/09/2019 M99.00 Segmental and somatic dysfunction of head Sopdeysik, Danny, D.O. region 08/09/2019 M99.01 Segmental and somatic dysfunction of cervical Sopchak, Danny, D.O. region 08/09/2019 M99.08 Segmental and somatic dysfunction of rib cage SopDanny rico, D.O. 08/09/2019 M99.03 Segmental and somatic dysfunction of lumbar SopdeysikZoilaon , D.O. region 08/09/2019 M99.05 Segmental and somatic dysfunction of pelvic Sopdeysik, Danny , D.O. region 08/09/2019 M99.02 Segmental and somatic dysfunction of thoracic Sopdeysik, Danny, D.O. region 08/09/2019 M99.04 Segmental and somatic dysfunction of sacral Sopdeysik, Danny , D.O. region 08/09/2019 Z23 Encounter for immunization Danny Gabriel, D.O. 06/02/2019 E55.9 Vitamin D deficiency, unspecified Zoila Gabrielon, D.O. 06/02/2019 E66.01 Morbid (severe) obesity due to excess Danny Gabriel, D.O. calories 06/02/2019 K21.0 Gastro-esophageal reflux disease with Sopchak, Danny, D.O. esophagitis 06/02/2019 M54.2 Cervicalgia Sopchak, Danny, D.O. 06/02/2019 M54.5 Low back pain Sopchak, Danny, D.O. 06/02/2019 M99.03 Segmental and somatic dysfunction of lumbar Sopchak, Danny , D.O. region 06/02/2019 M99.04 Segmental and somatic dysfunction of sacral Sopchak, Danny , D.O. region 06/02/2019 M99.05 Segmental and somatic dysfunction of pelvic Sopchak, Danny , D.O. region 06/02/2019 M99.02 Segmental and somatic dysfunction of thoracic Sopchak, Danny, D.O. region 06/02/2019 M99.08 Segmental and somatic dysfunction of rib cage Sopchak, Danny, D.O. 06/02/2019 M99.00 Segmental and somatic dysfunction of head Sopchak, Danny, D.O. region 06/02/2019 M99.01 Segmental and somatic dysfunction of cervical Sopchak, Danny, D.O. region 06/02/2019 J44.9 Chronic obstructive pulmonary disease, Sopchak, Danny, D.O. unspecified 03/01/2019 M99.03 Segmental and somatic dysfunction of lumbar Sopchak, Danny , D.O. region 03/01/2019 M99.05 Segmental and somatic dysfunction of pelvic Sopchak, Danny , D.O. region 03/01/2019 M99.04 Segmental and somatic dysfunction of sacral Sopchak, Danny , D.O. region 03/01/2019 M99.02 Segmental and somatic dysfunction of thoracic Sopchak, Danny, D.O. region 03/01/2019 M99.08 Segmental and somatic dysfunction of rib cage Sopchak, Danny, D.O. 03/01/2019 M99.00 Segmental and somatic dysfunction of head Sopchak, Danny, D.O. region 03/01/2019 M99.01 Segmental and somatic dysfunction of cervical Sopchak, Danny, D.O. region 03/01/2019 M54.5 Low back pain Sopchak, Danny, D.O. 03/01/2019 M54.2 Cervicalgia Sopchak, Danny, D.O. 03/01/2019 E66.9 Obesity, unspecified Danny Gabriel D.O. 03/01/2019 J44.9 Chronic obstructive pulmonary disease, Danny Gabriel D.O. unspecified 03/01/2019 Z68.41 Body mass index (BMI) 40.0-44.9, adult Danny Gabriel D.O. Plan of Treatment Future Appointment(s):10/28/2019 12:55 pm - Danny Gabriel D.O. at Main [facility]1908/09/2019 - Danny Gabriel D.O.M54.81 Occipital nfueinaagK00.2 CervicalgiaFollow up:2 month recheck [facility] for neck pain/tingling down arm; Shingrix #2J44.9 Chronic obstructive pulmonary disease, aystnvwxflkO82.210 Nicotine dependence, cigarettes, kbuffwnqusqydK04.00 Segmental and somatic dysfunction of head mhqottR58.01 Segmental and somatic dysfunction of cervical laptwvB29.08 Segmental and somatic dysfunction of rib cageM99.03 Segmental and somatic dysfunction of lumbar zqkoozH99.05 Segmental and somatic dysfunction of pelvic vtppqbD76.02 Segmental and somatic dysfunction of thoracic cphawmA82.04 Segmental and somatic dysfunction of sacral iseblgT13 Encounter for immunization Functional Status Description No Information Available Mental Status Description No Information Available Referrals Description No Information Available
[2019-08-15] MEDS ORDERED: Dexamethasone IV* 4 MG/ML 1 ML (4 MG) IM ONE (10:31)
[2019-08-15] MEDS ORDERED: Ketorolac INJ* 30 MG/ML 1 ML VIAL IM ONE (10:31)
[2019-08-15] MEDS ORDERED: Lidocaine PATCH 5%* 1 PATCH TRANSDERM ONE (10:32)
--- NOTE | 2019-08-15 10:36 | ED ---
Back Pain - HPI Summary HPI Summary: 49 year old female presents with back pain for the past week. She states she sees her chiropractor every couple months to align her back pain. She states that since she saw chiropractor Friday she's been having increasing back pain. Pain is greatest on left side of back associated over left shoulder. No urinary symptoms. Loss of bowel or bladder. No saddle anesthesia. no pain in the legs. No numbness or tingling. no weakness. States she has been taking Tylenol ibuprofen for pain. Has history of back issues. she has a history of COPD. - History of Current Complaint Chief Complaint: EDBackInjuryPain Stated Complaint: BACK PAIN PER PT Time Seen by Provider: 08/15/19 10:17 Hx Last Menstrual Period: 06/01/18 Pain Intensity: 8 - Allergies/Home Medications Allergies/Adverse Reactions: Allergies Allergy/AdvReac Type Severity Reaction Status Date / Time codeine Allergy Severe See Comment Verified 08/15/19 10:16 morphine Allergy Severe See Comment Verified 08/15/19 10:16 Penicillins Allergy Severe Swelling Verified 08/15/19 10:16 Of Face,Lips,& Throat cephalexin Allergy Unknown Verified 08/15/19 10:16 Reaction Details PMH/Surg Hx/FS Hx/Imm Hx Endocrine/Hematology History: Reports: Hx Anemia - tries to eat better Denies: Hx Anticoagulant Therapy, Hx Diabetes, Hx Thyroid Disease Cardiovascular History: Denies: Hx Congestive Heart Failure, Hx Deep Vein Thrombosis, Hx Hypertension , Hx Myocardial Infarction, Hx Pacemaker/ICD, Hx Valvular Heart Disease, Other Cardiovascular Problems/Disorders Respiratory History: Reports: Hx Asthma - on medications, Hx Chronic Obstructive Pulmonary Disease (COPD), Other Respiratory Problems/Disorders - Pneumonia 07/2017, Prone to respiratory and sinus infections Denies: Hx Lung Cancer, Hx Pneumonia, Hx Pulmonary Embolism Comment Only: Hx Sleep Apnea - going to be tested in the future GI History: Reports: Hx Gastroesophageal Reflux Disease - Famotidine, Hx Hiatal Hernia, Hx Irritable Bowel - diarrhea jckkuzxcrx-9-8 times a day, Hx Ulcer - Treated in the past, Other GI Disorders - History of esophagitis,esophageal papilloma Denies: Hx Gall Bladder Disease, Hx Gastrointestinal Bleed, Hx Urosepsis History: Reports: Other Problems/Disorders - Frequent urination,usually urinates every 45 minutes,drinks alot of fluid Denies: Hx Kidney Stones, Hx Renal Disease Musculoskeletal History: Reports: Hx Arthritis - "everywhere", Hx Bursitis - shoulders, history of, Hx Tendonitis - Rotator cuff tendinitis left shoulder, left leg and hip torn muscles, Other Musculoskeletal History - Dr Recinos realigns her spine every so often Sensory History: Reports: Hx Cataracts - Bilateral extractions, Hx Contacts or Glasses - Glasses Denies: Hx Glaucoma, Hx Hearing Aid Opthamlomology History: Reports: Hx Cataracts - Bilateral extractions, Hx Contacts or Glasses - Glasses Denies: Hx Glaucoma Neurological History: Reports: Hx Headaches - has occasionally, Other Neuro Impairments/Disorders - History of concussions x 2 Denies: Hx Dementia, Hx Migraine, Hx Seizures, Hx Transient Ischemic Attacks (TIA) Psychiatric History: Reports: Hx Anxiety - on medication, Hx Depression - on medication - Cancer History Hx Chemotherapy: No Hx Radiation Therapy: No - Surgical History Surgery Procedure, Year, and Place: x 2. Biopsy x 3: Left breast, Left shoulder, Throat. Colonoscopy/Endoscopy/Biopsy. Bilateral Cataract Extraction Hx Anesthesia Reactions: No - allergy to morphine and codeine Infectious Disease History: No Infectious Disease History: Denies: Hx Clostridium Difficile, Hx Hepatitis, Hx Human Immunodeficiency Virus (HIV), Hx of Known/Suspected MRSA, Hx Shingles, Hx Tuberculosis, Hx Known/ Suspected VRE, Hx Known/Suspected VRSA, History Other Infectious Disease, Traveled Outside the [place] in Last 30 Days - Family History Known Family History: Positive: Diabetes - Social History Alcohol Use: None Substance Use Type: Reports: None Smoking Status (MU): Heavy Every Day Tobacco Smoker Type: Cigarettes Amount Used/How Often: 1/2 PPD for 40 years Length of Time of Smoking/Using Tobacco: 30+ YEARS Have You Smoked in the Last Year: Yes Review of Systems Negative: Fever Negative: Chest Pain Negative: Shortness Of Breath Positive: Myalgia - back pain All Other Systems Reviewed And Are Negative: Yes Physical Exam Triage Information Reviewed: Yes Vital Signs On Initial Exam: Initial Vitals Temp Pulse Resp BP Pulse Ox 98.0 F 79 16 147/78 99 08/15/19 10:12 08/15/19 10:12 08/15/19 10:12 08/15/19 10:12 08/15/19 10:12 Vital Signs Reviewed: Yes Appearance: Positive: Well-Appearing Skin: Positive: Warm, Dry Head/Face: Positive: Normal Head/Face Inspection Eyes: Positive: Normal, Conjunctiva Clear ENT: Positive: Pharynx normal Respiratory/Lung Sounds: Positive: Clear to Auscultation, Breath Sounds Present Cardiovascular: Positive: Normal, RRR Musculoskeletal: Positive: Limited @ - back, Other - tenderness left side of back especially left shoulder blade, good pulses, sensation grossly intact Neurological: Positive: Normal, Reflexes Intact - patella, Normal Gait, Babinski Bilateral - normal Psychiatric: Positive: Normal Procedures - Sedation Patient Received Moderate/Deep Sedation with Procedure: No Diagnostics - Vital Signs Vital Signs Temp Pulse Resp BP Pulse Ox 08/15/19 10:12 98.0 F 79 16 147/78 99 - Laboratory Lab Statement: Any lab studies that have been ordered have been reviewed, and results considered in the medical decision making process. - Radiology neck Radiology Interpretation Completed By: Radiologist Summary of Radiographic Findings: IMPRESSION: DEGENERATIVE DISC DISEASE WITH MILD OSTEOARTHRITIS. thoracic Radiology Interpretation Completed By: Radiologist Summary of Radiographic Findings: IMPRESSION: DEGENERATIVE DISC DISEASE. lumbar Radiology Interpretation Completed By: Radiologist Summary of Radiographic Findings: IMPRESSION: DEGENERATIVE DISC DISEASE AND OSTEOARTHRITIS. Re-Evaluation - Re-Evaluation First Eval Re-Evaluation Time: 12:11 Change: Improved Comment: feeling better Back Pain Course/Dx - Course Course Of Treatment: 49 year old female presents with back pain for the past week. She states she sees her chiropractor every couple months to align her back pain. She states that since she saw chiropractor Friday she's been having increasing back pain. Pain is greatest on left side of back associated over left shoulder. No urinary symptoms. Loss of bowel or bladder. No saddle anesthesia. no pain in the legs. No numbness or tingling. no weakness. States she has been taking Tylenol ibuprofen for pain. Has history of back issues. she has a history of COPD. On exam lungs clear to auscultation. Tenderness over left side of her left shoulder. Neurovascularly intact. Patient was able to ambulate into the room. gave decadron and toradol and lidoderm and feeling better. xrays arthritis and degenerative disc disease. will prescribe medrol and flexeril. told follow up with primary. patient understand and agrees with plan. - Diagnoses Differential Diagnosis/HQI/PQRI: Positive: Herniated Disc, Strain, Sprain Provider Diagnoses: Back pain Discharge ED - Sign-Out/Discharge Documenting (check all that apply): Patient Departure - Discharge Plan Condition: Good Disposition: HOME Prescriptions: Cyclobenzaprine TAB* [Flexeril 10 MG TAB*] 5 mg PO TID PRN #15 tab PRN Reason: Pain - Moderate Lidocaine PATCH 5%* [Lidoderm 5% Patch*] 1 patch TRANSDERM DAILY #5 patch methylPREDNISolone [Medrol Dosepak 4 MG*] 4 mg PO .SEE THANH INSTRUCTION #1 packet Patient Education Materials: Back Pain (ED) Referrals: Danny Gabriel DO [Primary Care Provider] - Additional Instructions: Follow directions on package for Medrol pack Take muscle relaxers up to three times a day Apply lidocaine patches to area for up to 12 hours in one 24 hour period Use ibuprofen or Tylenol for pain every 6 hours ice/heat area, move as much as possible Follow up with primary within 5 days Return to ED if develop any new or worsening symptoms - Billing Disposition and Condition Condition: GOOD Disposition: Home
[2019-08-15 10:47] LABS: Urine Appearance Cloudy; Urine Bilirubin Negative (Negative); Urine Blood Negative (Negative); Urine Color Yellow; Urine Glucose Negative (Negative); Urine Ketones Negative (Negative); Urine Nitrite Negative (Negative); Urine Protein Negative (Negative); Urine Specific Gravity 1.004 (1.010-1.030); Urine Urobilinogen Negative (Negative)
[2019-08-15 12:43] VITALS: BP 138/67
[2019-08-15] MEDS ORDERED: Lidocaine Patch REMOVE* 1 NOTE MISC SCH (21:00)
== END 2019-08-15 12:32 | disposition home or self-care (01) ==
LOC: ED 10:10
DX: M54.9 Dorsalgia, unspecified (principal); J44.9 Chronic obstructive pulmonary disease, unspecified; D64.9 Anemia, unspecified; K21.9 Gastro-esophageal reflux disease without esophagitis; G43.909 Migraine, unspecified, not intractable, without status migrainosus; F41.9 Anxiety disorder, unspecified; F17.210 Nicotine dependence, cigarettes, uncomplicated; Z79.899 Other long term (current) drug therapy; Z88.1 Allergy status to other antibiotic agents; Z88.5 Allergy status to narcotic agent; Z88.0 Allergy status to penicillin
CPT/HCPCS: 72050; 72070; 72110; 81003; 96372; 99282; A9270-GY; J1100; J1885